=== PATIENT | female | born 1950 | race Two or more races ===

== ENCOUNTER 2024-11-04 08:10 | Outpatient (AMB) | payer MEDICARE, MEDICAID, SELFPAY ==
--- NOTE | 2024-11-04 08:18 | PD.ORTHCLVIS ---
Vital signs 11/04/24 08:19 Height 1.65 m Height Method Stated Weight 100.045 kg Weight Measurement Method Standing Scale BMI 36.7 BP 114/65 Blood Pressure Source Automatic Cuff Blood Pressure Location Left Upper Arm Position Sitting Respiration 19 Pulse 94 Pulse Source Monitor Temp 97.5 F Temp Source Temporal Artery Scan Pulse Oximetry (%) 92 L Oxygen Delivery Method Room Air Med/Allergies Allergies & Medications Allergies aspirin Allergy (Intermediate, Verified 11/04/24 08:19) HIVES,DIFF. BREATHING ciprofloxacin Allergy (Intermediate, Verified 11/04/24 08:19) Bradycardia codeine Allergy (Intermediate, Verified 11/04/24 08:19) HIVES,DIFF. BREATHING erythromycin base Allergy (Intermediate, Verified 11/04/24 08:19) HIVES,DIFF. BREATHING ibuprofen Allergy (Intermediate, Verified 11/04/24 08:19) EYES SWELL,DIFF. BREATHING iodine Allergy (Intermediate, Verified 11/04/24 08:19) HIVES, DIFF. BREATHING Macrolide Antibiotics Allergy (Intermediate, Verified 11/04/24 08:19) HIVES,DIFF. BREATHING Penicillins Allergy (Intermediate, Verified 11/04/24 08:19) HIVES, DIFF. BREATHING propoxyphene Allergy (Intermediate, Verified 11/04/24 08:19) HIVES,DIFF. BREATHING Sulfa (Sulfonamide Antibiotics) Allergy (Intermediate, Verified 11/04/24 08:19) HIVES, DIFF. BREATHING tetracycline Allergy (Intermediate, Verified 11/04/24 08:19) HIVES, DIFF. BREATHING Medication Reconciliation diltiazem HCl 240 mg capsule,extended release 24 hr (Cardizem CD) 240 mg PO QAM ##0 06/29/09 [History Confirmed 11/04/24] metoprolol tartrate 25 mg tablet 25 mg PO BID 03/31/18 [History Confirmed 11/04/24] amlodipine 10 mg tablet 5 mg PO BID 12/23/18 [History Confirmed 11/04/24] linagliptin 5 mg tablet (Tradjenta) 5 mg PO QAM 12/23/18 [History Confirmed 11/04/24] budesonide-formoterol HFA 160 mcg-4.5 mcg/actuation aerosol inhaler (Symbicort) 2 puff inhalation QAM 10/27/20 [History Confirmed 11/04/24] tiotropium bromide 1.25 mcg/actuation mist for inhalation (Spiriva Respimat) 2 puff inhalation QAM 11/15/21 [History Confirmed 11/04/24] metformin 500 mg tablet 500 mg PO PRN PRN hyperglycemia 01/18/22 [History Confirmed 11/04/24] hydrocodone 5 mg-acetaminophen 325 mg tablet 1 tab PO Q6H PRN pain #20 tabs 01/19/22 [Rx Confirmed 11/04/24] Exam Exam Patient is in no acute distress and is cooperative with the examination today. Breathing is nonlabored. In no respiratory distress. Patient has no paraspinal tenderness. Spinal deformity cannot be appreciated. The gait of the patient is nonantalgic. She uses a walker due to oxygenation issues Bilateral extremities were evaluated and demonstrates sensation intact to light touch. Palpable pedal pulses are present. No significant edema is present. Bilateral knees were examined and the patient has full strength and range of motion.. The left hip was examined. Patient was able to flex to 90 degrees, adduct to 30 degrees, abduct to 40 degrees, internally rotate to 20 degrees, and externally rotate to 20 degrees. Patient has a negative logroll. Stinchfield is negative. The patient is nontender diffusely to touch. The right hip was examined. Patient was able to flex to 90 degrees, adduct to 30 degrees, abduct to 40 degrees, internally rotate to 20 degrees, and externally rotate to 20 degrees. Patient has a negative logroll. The stinchfield is negative. Assessment and Plan Problem List (1) Acute pain of right hip: Status: Acute Plan: 74-year-old female with right hip pain with pain on the side in the back. Her x-rays actually looks great. She has mild arthritis as well as severe L4-L5 degenerative disc disease. I think the pain is most likely due to her back. We will see her back on an as-needed basis if his pain is gone. I discussed with her that her hip looks great and if the pain gets worse it is likely from her back given the limited view of the spine that I can see from the hip films. We will get dedicated lumbar spine films should the pain worsen. 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 Level 4 (6212-4861) MA Intake Visit Data Collection New Patient or Established: New Patient (never been to [facility]) Reason for Visit:: RIGHT HIP PAIN Seen by Clinical Staff ONLY (RN/MA): No Char Filter Operator Required: No PCP or OBGYN visit in last 3 months: Yes Hx Now: No Do You Feel Safe at Home: Yes Authorities Contacted: N/A Questionairres Past Medical History Past Medical History Have you ever been diagnosed with any of the following: Neurological Problems Seizures: No Cardiology Problems Myocardial Infarction: No Hypercholesterolemia: Yes Congestive Heart Failure: No Cellulitis: Yes Hypertension: Yes (takes PO meds) Varicose Veins: Yes Respiratory Problems Chronic Obstructive Pulmonary Disease (COPD): Yes Asthma: Yes Pneumonia: Yes Sleep Apnea: Yes (oxygen 2 liters at night) Stomache/Intestinal Problems Colitis: Yes Gastroesophageal Reflux Disease: Yes Genital/Urinary Problems Renal Disease: No Kidney Stones: No Dialysis: No Reproductive Problems Endometriosis: Yes Previous Pregnancies: Yes () Musculoskeletal Problems Arthritis: Yes Osteoporosis: Yes Gout: Yes Fractures: Yes (RIGHT PINKY) Head,Eye,Nose,Throat Problems Cataracts: Yes Endocrine Problems Diabetes Mellitus Type 1: No Diabetes Mellitus Type 2: Yes (takes metformin PRN) Blood Problems Anemia: No Psychologic Problems Anxiety: Yes Other Problems Hospitalization: Yes Shingles: Yes Falls: No Blood Transfusions: No Blood Transfusion Reaction: No Anesthesia Reactions: No Organ Transplant: No Chemotherapy: No Radiation Therapy: No Hyperbaric Therapy: No MRSA: No VRSA: No Vancomycin-Resistant Enterococci: No Chicken Pox: Yes Measles: Yes Mumps: Yes Cancer: Yes (KIDNEY CA, PRECANCER CERVIX, 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 The pain started 2 months ago and stopped 3 weeks ago. She had minimal pain in her groin. She uses a walker as she is on home oxygen Pain Pain level (0-10): 0 Ambulatory data Ambulatory device: walker Treatments Improvement with previous injections: No Improvement with PT: No Improvement with NSAIDS: no Review of Systems Review of Systems: All systems negative unless otherwise noted in HPI.
[2024-11-04 08:19] VITALS: BP 114/65; PULSE 94; RESP 19; TEMP 36.4; O2SAT 92; BMI 36.7
== END 2024-11-04 08:45 | disposition home or self-care (01) ==
PROVIDERS: PCP Internal Medicine; Referring Provider Internal Medicine; Supervising Provider Orthopaedic Surgery Adult Reconstructive Orthopaedic Surgery; Visit Provider Orthopaedic Surgery Adult Reconstructive Orthopaedic Surgery
DX: M25.551 Pain in right hip (principal); M47.816 Spondylosis without myelopathy or radiculopathy, lumbar region; M51.369 Other intervertebral disc degeneration, lumbar region without mention of lumbar back pain or lower extremity pain; I10 Essential (primary) hypertension; E11.9 Type 2 diabetes mellitus without complications; E78.00 Pure hypercholesterolemia, unspecified; K21.9 Gastro-esophageal reflux disease without esophagitis
CPT/HCPCS: 99204; G0463

== ENCOUNTER → 2024-12-01 | Outpatient (CLI) | payer MEDICARE, MEDICAID, SELFPAY ==
[2024-12-01 09:36] LABS: Collection Type, Urine Clean Catch
[2024-12-01 09:38] LABS: Basophils # (Auto) 0.1 Thou/mm3 (0.0-0.2); Basophils % (Auto) 1 % (0-2.5); Eosinophils % (Auto) 8 % (0-10); Hematocrit 49.6 % (36.0-46.0); Hemoglobin 16.2 g/dL (12.0-16.0); Immature Granulocytes % (Auto) 0 % (0-0); Immature Granulocytes Auto 0.05 Thou/mm3 (0.00-0.00); Lymphocytes # (Auto) 2.4 Thou/mm3 (1.0-4.8); Lymphocytes % (Auto) 19 % (10-50); Mean Corpuscular HGB Conc 32.7 g/dl (31.0-37.0); Mean Corpuscular Hemoglobin 28.9 pg (25.0-35.0); Mean Corpuscular Volume 88 fL (80-100); Monocytes # (Auto) 0.9 Thou/mm3 (0.0-0.8); Monocytes % (Auto) 7 % (0-12); Neutrophils # (Auto) 8.6 Thou/mm3 (1.8-7.7); Neutrophils % (Auto) 66 % (37-80); Nucleated Red Blood Cell % 0 /100 WBC (0); Platelet Count 282 Thou/mm3 (140-440); RDW Standard Deviation 45.6 fL (36.4-46.3); Red Blood Count 5.61 Miln/mm3 (4.00-5.20)
[2024-12-01 09:43] LABS: Glucose Estimated Average 151 mg/dL (80-131); Hemoglobin A1C 6.9 % Hgb (4.8-6.0)
[2024-12-01 09:56] LABS: Alanine Aminotransferase 25 U/L (10-49); Albumin, Serum 4.7 gm/dL (3.4-4.8); Albumin/Globulin Ratio 1.9 (1.2-2.2); Alkaline Phosphatase 104 U/L (46-116); Anion Gap 7 (7-16); Aspartate Amino Transferase 21 U/L (0-34); BUN/Creatinine Ratio 16 Ratio (12-20); Bilirubin,Total 0.8 mg/dL (0.3-1.2); Blood Urea Nitrogen 16 mg/dL (9-23); Calcium 10.2 mg/dL (8.3-10.6); Calcium (Corrected) 10.2 mg/dL (8.5-10.1); Carbon Dioxide 29.7 mMol/L (20.0-31.0); Cardiac Risk Estimate 3.2 RATIO (3.7-5.6); Chloride 103 mMol/L (98-107); Cholesterol 152 mg/dL (132-200); Globulin 2.5 gm/dL (2.3-3.5); Glucose 152 mg/dL (74-106); HDL Cholesterol 48 mg/dL (40-60); LDL Cholesterol,Calculated 77 mg/dL (0-130); Osmolality,Calculated 283 (275-295); Sodium 140 mMol/L (136-145); Thyroid Stimulating Hormone 3.82 uIU/mL (0.55-4.78); Total Protein 7.2 gm/dL (5.7-8.2); Triglycerides 136 mg/dL (30-150); eGFR 59 See Note
[2024-12-01 10:55] LABS: Bacteria,Urine 3+; Bilirubin,Urine Negative (Negative); Blood,Urine Negative (Negative); Clarity,Urine Clear (Clear/Hazy); Color,Urine Yellow (Lt Yel-Yel); Glucose, Urine Trace (Negative); Ketones,Urine Trace (Negative); Leukocyte Esterase,Urine Positive (Negative); Nitrite,Urine Positive (Negative); Protein,Urine 1+ (Neg - Trace); RBC,Urine 1 /hpf (0-3); Specific Gravity,Urine 1.023 (1.001-1.035); Squamous Epithelial Cell,Urine 3 /hpf (0-5); Urobilinogen,Urine Negative mg/dL (0.0-1.0); WBC,Urine 10 /hpf (0-5)
[2024-12-01 11:03] LABS: Culture Indicated,Urine Yes
== END | disposition home or self-care (01) ==
PROVIDERS: PCP Internal Medicine; Referring Provider Internal Medicine; Visit Provider Internal Medicine
DX: I10 Essential (primary) hypertension (principal); E78.5 Hyperlipidemia, unspecified
CPT/HCPCS: 36415; 80053; 80061; 81001; 83036; 84443; 85025; 87077; 87086; 87186

== ENCOUNTER 2025-02-04 16:57 | Emergency (ER) | payer MEDICARE, SELFPAY ==
[2025-02-04 17:07] VITALS: BP 137/77; PULSE 98; RESP 18; TEMP 36.6; O2SAT 95
[2025-02-04 17:08] VITALS: BMI 36.2
--- NOTE | 2025-02-04 17:28 | EKG_ITS ---
[facility] Test Date: 2025-02-04 Pat Name: NIKUNJ CHAPPELL Department: Room: - Gender: Female Seamless Tube Roller: : 1950 Requested By: Wayne Jung Order Number: [id number] Reading MD: Wayne Jung Measurements Intervals [place] Rate: 92 P: 27 CO: 145 QRS: -5 QRSD: 106 T: -22 QT: 365 QTc: 453 Interpretive Statements SINUS RHYTHM INCOMPLETE RIGHT BUNDLE BRANCH BLOCK [90+ ms QRS DURATION, TERMINAL R IN V1/V2, 40+ ms S IN I/aVL/V4/V5/V6] INFERIOR MYOCARDIAL INFARCTION , PROBABLY OLD [40+ ms Q WAVE AND/OR ST/T ABNORMALITY IN II/aVF] ANTEROLATERAL MYOCARDIAL INFARCTION , OF INDETERMINATE AGE [40+ ms Q WAVE IN I/aVL/V3-V6] Compared to ECG 11/15/2021 11:51:24 No significant changes /store/S0/[id number]/ecg/[id number].pdf
--- NOTE | 2025-02-04 17:30 | PD.EDRME ---
Rapid Medical Screening Exam RME Arrival date/time: 02/04/25 16:57 Time Seen by Provider: 02/04/25 17:27 Vital signs: Vital Signs Temperature 97.9 F 02/04/25 17:07 Pulse Rate 98 02/04/25 17:07 Respiratory Rate 18 02/04/25 17:07 Blood Pressure 137/77 H 02/04/25 17:07 Pulse Oximetry (%) 95 02/04/25 17:07 Oxygen Delivery Method Room Air 02/04/25 17:07 RME Narrative: 74-year-old female with history of hypertension, frequent headaches, who was at the [facility] when she noted a headache followed by palpitations, and feeling of lightheadedness. She denies syncope. During transport her headache had subsided initially but now has returned as she is in the ambulance bay. She denies focal neurologic complaints. I have greeted the patient and initiated a problem focused workup. She will be seen by the additional provider for complete analysis, management, and final disposition.
[2025-02-04] MEDS: ACETAMINOPHEN 325 MG TABLET 650 MG PO (17:33)
[2025-02-04 17:34] VITALS: PULSE 99; RESP 16; O2SAT 98; BMI 35.9
--- NOTE | 2025-02-04 17:50 | PD.EDADULT ---
ED General RME/HPI General Chief complaint: Syncope / Near Syncope Stated complaint: HEADACHE/NEAR SYNCOPE Time Seen by Provider: 02/04/25 17:27 Arrival date/time: 02/04/25 16:57 RME / HPI RME / HPI narrative: 74-year-old female with history of hypertension, frequent headaches, who was at the [facility] when she noted a headache followed by palpitations, and feeling of lightheadedness. She denies syncope. During transport her headache had subsided initially but now has returned as she is in the ambulance bay. She denies focal neurologic complaints. Patient denies any chest pain. Patient denies any other complaints patient was recently started on new blood pressure medication, clonidine, and was advised to take it with the blood pressure is above 160. She took it this morning prior to going to [facility]. Related Data Home Medications ?Medication ?Instructions ?Recorded ?Confirmed diltiazem HCl 240 mg 240 mg PO QAM ##0 06/29/09 11/04/24 capsule,extended release 24 hr (Cardizem CD) metoprolol tartrate 25 mg tablet 25 mg PO BID 03/31/18 11/04/24 amlodipine 10 mg tablet 5 mg PO BID 12/23/18 11/04/24 linagliptin 5 mg tablet (Tradjenta) 5 mg PO QAM 12/23/18 11/04/24 budesonide-formoterol HFA 160 2 puff inhalation QAM 10/27/20 11/04/24 mcg-4.5 mcg/actuation aerosol inhaler (Symbicort) tiotropium bromide 1.25 2 puff inhalation QAM 11/15/21 11/04/24 mcg/actuation mist for inhalation (Spiriva Respimat) metformin 500 mg tablet 500 mg PO PRN PRN hyperglycemia 01/18/22 11/04/24 Previous Rx's ?Medication ?Instructions ?Recorded hydrocodone 5 mg-acetaminophen 325 1 tab PO Q6H PRN pain #20 tabs 01/19/22 mg tablet Allergies Allergy/AdvReac Type Severity Reaction Status Date / Time aspirin Allergy Intermediate HIVES,DIFF. Verified 11/04/24 08:19 BREATHING ciprofloxacin Allergy Intermediate Bradycardia Verified 11/04/24 08:19 codeine Allergy Intermediate HIVES,DIFF. Verified 11/04/24 08:19 BREATHING erythromycin base Allergy Intermediate HIVES,DIFF. Verified 11/04/24 08:19 BREATHING ibuprofen Allergy Intermediate EYES Verified 11/04/24 08:19 SWELL,DIFF. BREATHING iodine Allergy Intermediate HIVES, Verified 11/04/24 08:19 DIFF. BREATHING Macrolide Antibiotics Allergy Intermediate HIVES,DIFF. Verified 11/04/24 08:19 BREATHING Penicillins Allergy Intermediate HIVES, Verified 11/04/24 08:19 DIFF. BREATHING propoxyphene Allergy Intermediate HIVES,DIFF. Verified 11/04/24 08:19 BREATHING Sulfa (Sulfonamide Allergy Intermediate HIVES, Verified 11/04/24 08:19 Antibiotics) DIFF. BREATHING tetracycline Allergy Intermediate HIVES, Verified 11/04/24 08:19 DIFF. BREATHING Review of Systems Review of Systems Narrative Review of Systems: Review of system reviewed and within normal limits except mentioned in HPI ED Exam Narrative Physical exam: VITAL SIGNS: Reviewed. GENERAL APPEARANCE: Alert and interactive, follows commands, no acute distress, HEAD AND FACE: Non-traumatic. ENT: PERRL, pink conjunctivitis, eyelid no trauma, Mucous membrane moist. NECK: Supple, nontender, no nuchal rigidity. CHEST: No tenderness, no crepitus, no paradoxical movement, no retractions. LUNGS: Clear, well ventilated, symmetric, no rales, no wheezing, no ronchi, no stridor, good breath sounds bilaterally. HEART: Regular rate, regular rhythm, no murmur, no gallops. ABDOMEN: Soft, positive bowel sounds, nondistended, no guarding, nontender, no rebound, no masses, RECTAL: Deferred. GENITAL: Deferred. NEUROLOGICAL: Gross motor function intact sensory function intact, Appropriate for age. MUSCULOSKELETAL: low back nontender, full range of motion. EXTREMITIES: Nontender, full range of motion. SKIN: Color pink, dry, no rash, no lacerations, no abrasions, no contusions. LYMPHATICS: Deferred. Course Quality Measures none Orders Category Date Time Status EKG (ED ONLY) *Do not use* NOW Care 02/04/25 17:29 Completed EKG (ED Only) Stat Exams 02/04/25 17:28 Draft BMP [Basic Metabolic Panel] Stat Lab 02/04/25 18:39 Completed CBC Stat Lab 02/04/25 18:39 Completed Acetaminophen Tab [Tylenol Tab] Med 02/04/25 17:29 Discontinued 650 mg PO X1 ONE Vital Signs Vital signs: Vital Signs Temperature 97.9 F 02/04/25 17:07 Pulse Rate 98 02/04/25 17:07 Respiratory Rate 18 02/04/25 17:07 Blood Pressure 137/77 H 02/04/25 17:07 Pulse Oximetry (%) 95 02/04/25 17:07 Oxygen Delivery Method Room Air 02/04/25 17:07 MDM Patient data External records reviewed:: None Clinical information provided by:: none Social determinants that could affect healthcare access:: housing Patient has the following chronic illnesses:: Hypertension How is presenting disease/condition affected by chronic disease/condition?: exacerbated by Evaluation data The following diagnostics were reviewed and interpreted by me:: lab results Lab and/or radiology exams considered but not ordered:: None Interpretation Summary: EKG as interpreted by me shows sinus rhythm ventricular rate of 92 bpm, no ST segment elevation or depression noted. Patient's workup CBC and CMP all came back unremarkable except for slight leukocytosis of 15,000. Medications Medications considered but not ordered:: None Medication administrations:: Medication Administration History Discontinued Medications Acetaminophen (Acetaminophen 325 Mg Tablet) 650 mg PO X1 ONE Stop: 02/04/25 17:30 Last Admin: 02/04/25 17:33 Dose: 650 mg Documented By: GM Tylenol Consultations Consultation(s) initiated? (list below): No Diagnosis Differential Diagnosis ED Complaint MDM: Headache, dizziness, hypertension Most likely diagnosis given after review of the tests above:: Hypertension Admission Indicated Admission indicated?: not indicated Explain why admission is indicated or not indicated:: Stable Admission Request Was there a request for admission?: No Disposition Plan Disposition Plan: Discharge Discharge Attestation Discharge Attestation: The patient and all family members were given an opportunity to ask questions and understood the discharge instructions. Discharge instructions specifically effects, indications for sooner follow up or return to the emergency department, and the expected course of current diagnosis. Patient condition: Stable Medical Decision Making MDM Narrative MDM Narrative: 74-year-old female with history of hypertension, frequent headaches, who was at the [facility] when she noted a headache followed by palpitations, and feeling of lightheadedness. She denies syncope. During transport her headache had subsided initially but now has returned as she is in the ambulance bay. She denies focal neurologic complaints. Patient denies any chest pain. Patient denies any other complaints patient was recently started on new blood pressure medication, clonidine, and was advised to take it with the blood pressure is above 160. She took it this morning prior to going to [facility]. Patient's blood pressure was noted to be 127/62 heart rate of 81 prior to discharge. Patient is not having any symptoms Differential Diagnosis Differential Diagnosis: Headache, dizziness, hypertension Lab Data 02/04/25 18:39 02/04/25 18:39 Labs: Lab Results 02/04/25 Range/Units 18:39 WBC 15.1 H (3.6-11.0) Thou/mm3 RBC 5.30 H (4.00-5.20) Miln/mm3 Hgb 15.2 (12.0-16.0) g/dL Hct 46.4 H (36.0-46.0) % MCV 88 (80-100) fL MCH 28.7 (25.0-35.0) pg MCHC 32.8 (31.0-37.0) g/dl RDW Std Deviation 47.0 H (36.4-46.3) fL Plt Count 233 (140-440) Thou/mm3 Neut % (Auto) 69 (37-80) % Lymph % (Auto) 15 (10-50) % [place] % (Auto) 7 (0-12) % Eos % (Auto) 8 (0-10) % Baso % (Auto) 1 (0-2.5) % Neut # (Auto) 10.3 H (1.8-7.7) Thou/mm3 Lymph # (Auto) 2.3 (1.0-4.8) Thou/mm3 [place] # (Auto) 1.1 H (0.0-0.8) Thou/mm3 Eos # (Auto) 1.2 H (0.0-0.5) Thou/mm3 Baso # (Auto) 0.1 (0.0-0.2) Thou/mm3 Immature Gran # (Auto) 0.06 H (0.00-0.00) Thou/mm3 Absolute Nucleated RBC 0.00 (0.00-0.00) Thou/mm3 Immature Gran % 0 (0-0) % Nucleated RBC % 0 (0) /100 WBC Sodium 145 (136-145) mMol/L Potassium 3.5 (3.4-5.1) mMol/L Chloride 106 (98-107) mMol/L Carbon Dioxide 32.2 H (20.0-31.0) mMol/L Anion Gap 7 (7-16) BUN 12 (9-23) mg/dL Creatinine 1.1 (0.6-1.3) mg/dL Estim Creat Clear Calc 52.7 L (>60) mL/min eGFR 53 L (60 - ) See Note BUN/Creatinine Ratio 11 L (12-20) Ratio Glucose 103 (74-106) mg/dL Calculated Osmolality 288 (275-295) Calcium 9.7 (8.3-10.6) mg/dL Discharge Plan Plan Patient Disposition: HOME (Self Care) Disposition Comment: Stable Prescriptions/Referrals Prescriptions/Med Rec: No Action diltiazem HCl [Cardizem CD] 240 MG capsule,extended release 24hr 240 mg PO QAM Qty: 0 metoprolol tartrate 25 mg Tablet 25 mg PO BID budesonide-formoterol [Symbicort] 160-4.5 mcg/actuation Hfa Aerosol Inhaler 2 puff INHALATION QAM Spiriva Respimat 1.25 mcg/actuation Mist 2 puff INHALATION QAM metformin 500 mg tablet 500 mg PO PRN PRN (Reason: hyperglycemia) Patient Comments: TAKE 1 TABLET BY MOUTH TWICE A DAY hydrocodone-acetaminophen 5-325 mg tablet 1 tab PO Q6H MDD 5 PRN (Reason: pain) Qty: 20 0RF amlodipine 10 mg Tablet 5 mg PO BID Tradjenta 5 mg Tablet 5 mg PO QAM Referrals: Anca Esteban MD [Primary Care Provider] - In 1 week Problem List Clinical Impression: Hypertension Patient/Caregiver Discharge Instructions Discharge Activity: activity as tolerated Education Materials: Hypertension Dc Additional Instructions: Thank you for the opportunity for serving you today. You are stable for discharged . You are advised to: Follow-up with your PCP in 1 to 2 days Return to ED for worsening of symptoms Increase oral fluids Take medication as prescribed by your PCP You may take Tylenol as needed for headache Print Language: Kinyarwanda Stand Alone Forms: [employer] Award Info., Patient Portal Info Letter PA/STACEY Supervising Physician PA/STACEY Supervising Physician: MD Karissa
[2025-02-04 18:42] VITALS: BP 127/62; PULSE 81; RESP 18; TEMP 36.4; O2SAT 97
[2025-02-04 18:55] LABS: Basophils # (Auto) 0.1 Thou/mm3 (0.0-0.2); Basophils % (Auto) 1 % (0-2.5); Eosinophils # (Auto) 1.2 Thou/mm3 (0.0-0.5); Eosinophils % (Auto) 8 % (0-10); Hematocrit 46.4 % (36.0-46.0); Hemoglobin 15.2 g/dL (12.0-16.0); Immature Granulocytes % (Auto) 0 % (0-0); Immature Granulocytes Auto 0.06 Thou/mm3 (0.00-0.00); Lymphocytes # (Auto) 2.3 Thou/mm3 (1.0-4.8); Lymphocytes % (Auto) 15 % (10-50); Mean Corpuscular HGB Conc 32.8 g/dl (31.0-37.0); Mean Corpuscular Hemoglobin 28.7 pg (25.0-35.0); Mean Corpuscular Volume 88 fL (80-100); Monocytes # (Auto) 1.1 Thou/mm3 (0.0-0.8); Monocytes % (Auto) 7 % (0-12); Neutrophils # (Auto) 10.3 Thou/mm3 (1.8-7.7); Neutrophils % (Auto) 69 % (37-80); Nucleated Red Blood Cell % 0 /100 WBC (0); Platelet Count 233 Thou/mm3 (140-440); White Blood Count 15.1 Thou/mm3 (3.6-11.0)
[2025-02-04 19:18] LABS: Anion Gap 7 (7-16); BUN/Creatinine Ratio 11 Ratio (12-20); Blood Urea Nitrogen 12 mg/dL (9-23); Calcium 9.7 mg/dL (8.3-10.6); Carbon Dioxide 32.2 mMol/L (20.0-31.0); Chloride 106 mMol/L (98-107); Creatinine (Component) 1.1 mg/dL (0.6-1.3); Estimated Creatinine Clearance 52.7 mL/min (>60); Glucose 103 mg/dL (74-106); Osmolality,Calculated 288 (275-295); Potassium 3.5 mMol/L (3.4-5.1); Sodium 145 mMol/L (136-145); eGFR 53 See Note
[2025-02-04 19:53] VITALS: BP 134/70; PULSE 78; RESP 18; TEMP 36.6; O2SAT 97
== END 2025-02-04 20:19 | disposition home or self-care (01) ==
PROVIDERS: Emergency Provider Emergency Medicine; PCP Internal Medicine
DX: I10 Essential (primary) hypertension (principal); I45.10 Unspecified right bundle-branch block
CPT/HCPCS: 36415; 80048; 85025; 93005; 99283; A9270

== ENCOUNTER 2025-02-12 12:46 | Emergency (ER) | payer MEDICARE, MEDICAID, SELFPAY ==
[2025-02-12 12:54] VITALS: BMI 35.4
[2025-02-12 12:55] VITALS: BP 125/79; PULSE 94; RESP 19; TEMP 36.6; O2SAT 95
[2025-02-12 12:57] VITALS: PULSE 90; O2SAT 95; BMI 35.2
--- NOTE | 2025-02-12 13:08 | PC.NURSE ---
pt is refusing to be seen by provider in triage. Family member picked her up to take her to her regular doctor. Advised patient to be seen by ER provider but she refused.
--- NOTE | 2025-02-12 15:24 | PC.NURSE ---
@1330 Patient was biba for c/o high blood pressure, RN started to do triage for patient and after answering all questions, patient did not want to be seen. Patient stated will have her granddaughter take her to PMD. Patient is alert and oriented sitting in wheelchair, no apparent distress noted. Patient verbalizing understanding.
== END 2025-02-12 13:34 | disposition left against medical advice (07) ==
LOC: SERX 13:56
PROVIDERS: Emergency Provider Emergency Medicine
DX: Z53.21 Procedure and treatment not carried out due to patient leaving prior to being seen by health care provider (principal)
CPT/HCPCS: 99281

== ENCOUNTER → 2025-03-20 | Outpatient (CLI) | payer MEDICARE, MEDICAID, SELFPAY ==
[2025-03-20 09:38] LABS: Collection Type, Urine Clean Catch
[2025-03-20 10:21] LABS: Basophils # (Auto) 0.1 Thou/mm3 (0.0-0.2); Basophils % (Auto) 1 % (0-2.5); Eosinophils # (Auto) 1.8 Thou/mm3 (0.0-0.5); Eosinophils % (Auto) 15 % (0-10); Hematocrit 45.6 % (36.0-46.0); Hemoglobin 14.6 g/dL (12.0-16.0); Immature Granulocytes % (Auto) 0 % (0-0); Immature Granulocytes Auto 0.05 Thou/mm3 (0.00-0.00); Lymphocytes # (Auto) 3.1 Thou/mm3 (1.0-4.8); Lymphocytes % (Auto) 25 % (10-50); Mean Corpuscular Hemoglobin 28.4 pg (25.0-35.0); Mean Corpuscular Volume 89 fL (80-100); Monocytes # (Auto) 0.9 Thou/mm3 (0.0-0.8); Monocytes % (Auto) 8 % (0-12); Neutrophils # (Auto) 6.4 Thou/mm3 (1.8-7.7); Neutrophils % (Auto) 52 % (37-80); Nucleated Red Blood Cell % 0 /100 WBC (0); Platelet Count 259 Thou/mm3 (140-440); RDW Standard Deviation 47.9 fL (36.4-46.3); Red Blood Count 5.14 Miln/mm3 (4.00-5.20); White Blood Count 12.3 Thou/mm3 (3.6-11.0)
[2025-03-20 10:32] LABS: Glucose Estimated Average 134 mg/dL (80-131); Hemoglobin A1C 6.3 % Hgb (4.8-6.0)
[2025-03-20 10:33] LABS: Parathyroid Hormone Intact 99.1 pg/ml (18.5-88.0)
[2025-03-20 10:38] LABS: Creatinine MALB Rnd Ur 105 mg/dL (30-125); Microalbumin Creat Ratio 34 mg/gCrea (<30); Microalbumin, Random Urine 36 mg/L (0-300)
[2025-03-20 10:43] LABS: Alanine Aminotransferase 19 U/L (10-49); Albumin, Serum 4.3 gm/dL (3.4-4.8); Albumin/Globulin Ratio 1.9 (1.2-2.2); Alkaline Phosphatase 98 U/L (46-116); Anion Gap 8 (7-16); Aspartate Amino Transferase 17 U/L (0-34); BUN/Creatinine Ratio 10 Ratio (12-20); Bilirubin,Total 0.6 mg/dL (0.3-1.2); Blood Urea Nitrogen 11 mg/dL (9-23); Calcium 8.9 mg/dL (8.3-10.6); Calcium (Corrected) 8.9 mg/dL (8.5-10.1); Carbon Dioxide 29.8 mMol/L (20.0-31.0); Cardiac Risk Estimate 3.3 RATIO (3.7-5.6); Chloride 106 mMol/L (98-107); Cholesterol 143 mg/dL (132-200); Creatinine (Component) 1.1 mg/dL (0.6-1.3); Globulin 2.3 gm/dL (2.3-3.5); Glucose 132 mg/dL (74-106); HDL Cholesterol 43 mg/dL (40-60); LDL Cholesterol,Calculated 76 mg/dL (0-130); Osmolality,Calculated 288 (275-295); Potassium 3.9 mMol/L (3.4-5.1); Sodium 144 mMol/L (136-145); Thyroid Stimulating Hormone 3.85 uIU/mL (0.55-4.78); Total Protein 6.6 gm/dL (5.7-8.2); Triglycerides 118 mg/dL (30-150); eGFR 53 See Note
[2025-03-20 10:45] LABS: Vitamin B12 411 pg/mL (211-911); Vitamin D 25 Hydroxy Total 33.5 ng/mL (7.3-40.2)
[2025-03-20 10:49] LABS: Bacteria,Urine Rare; Bilirubin,Urine Negative (Negative); Blood,Urine Negative (Negative); Color,Urine Yellow (Lt Yel-Yel); Glucose, Urine Negative (Negative); Ketones,Urine Negative (Negative); Leukocyte Esterase,Urine Positive (Negative); Nitrite,Urine Positive (Negative); PH,Urine 6.5 (5.0-7.0); Protein,Urine Trace (Neg - Trace); RBC,Urine 2 /hpf (0-3); Squamous Epithelial Cell,Urine 3 /hpf (0-5); Urobilinogen,Urine Negative mg/dL (0.0-1.0); WBC,Urine 11 /hpf (0-5)
[2025-03-20 11:12] LABS: Clarity,Urine Hazy (Clear/Hazy)
== END | disposition home or self-care (01) ==
LOC: COPL 08:54
PROVIDERS: PCP Internal Medicine; Referring Provider Internal Medicine; Visit Provider Internal Medicine
DX: D51.9 Vitamin B12 deficiency anemia, unspecified (principal); E03.9 Hypothyroidism, unspecified; E11.9 Type 2 diabetes mellitus without complications; E55.9 Vitamin D deficiency, unspecified; E78.5 Hyperlipidemia, unspecified; I10 Essential (primary) hypertension
CPT/HCPCS: 36415; 80053; 80061; 81001; 82043; 82306; 82570; 82607; 83036; 83970; 84443; 85025

== ENCOUNTER 2025-04-28 22:09 | Inpatient (IN) | payer MEDICARE, MEDICAID, SELFPAY ==
--- NOTE | 2025-04-28 22:13 | PD.EDSOB ---
ED SOB =RME/HPI General Chief Complaint: Shortness of Breath/Dyspnea Stated Complaint: SOB Time Seen by Provider: 04/28/25 22:22 Arrival date/time: 04/28/25 22:09 RME / HPI RME / HPI Narrative: This section includes all my notes and documentations, including HPI, PE, and ED course. Hood Hancock MD HPI: 75 y/o female with Hx Anxiety, HTN, and COPD BIBA presents with about a week history of worsening cough, productive cough, purulent sputum, and dyspnea. Patient is on 2L supplemental oxygen at home, but denies using O2 as prescribed and only uses it PRN. Has been using an more in the past few days. Reports objective fever and severe chills and bodyaches and nausea. No other complaints. ROS: All negative except as documented in HPI. Physical Exam: General: Alert and oriented. In moderate respiratory distress. Fever and hypoxia noted. Hacking cough noted. Eyes: Conjunctivae and lids clear. ENT: No nasal congestion. Neck: Supple. Heart: Sinus tachycardia noted. Lungs: Respiratory distress. Moderately decreased air movement with wheezing and rales. Abdomen: Soft and nontender. Skin: Warm and dry. Neuro: Alert and oriented X 3. I reviewed EMS notes. I reviewed all diagnostic test results: My interpretation of the EKG is: Sinus tachycardia (120 bpm) with nonspecific ST-T changes. My interpretation of the chest x-ray is infiltrates. Blood tests remarkable for WBC 14.7. ABG showed pH 7.44, pCO2 41, and pHCO3 28. UA showed positive nitrite, positive leukocyte Estrace, 46 WBC, and bacteria. Covid/Influenza negative. At this point, diagnoses include: Acute respiratory failure with hypoxia Sepsis Pneumonia COPD exacerbation UTI Treatment here included: IV fluid, Zofran, Solu-Medrol, neb treatment, Tylenol, Rocephin, and Zithromax. Some improvement noted. I discussed the case with our hospitalist. About the presentation and exam and diagnostics and treatments here. And need of further care in the hospital. Will accept the patient. Hood Hancock MD Related Data Home Medications ?Medication ?Instructions ?Recorded ?Confirmed diltiazem HCl 240 mg 240 mg PO QA ##0 06/29/09 11/04/24 capsule,extended release 24 hr (Cardizem CD) metoprolol tartrate 25 mg tablet 25 mg PO BID 03/31/18 11/04/24 amlodipine 10 mg tablet 5 mg PO BID 12/23/18 11/04/24 linagliptin 5 mg tablet (Tradjenta) 5 mg PO QAM 12/23/18 11/04/24 budesonide-formoterol HFA 160 2 puff inhalation QAM 10/27/20 11/04/24 mcg-4.5 mcg/actuation aerosol inhaler (Symbicort) tiotropium bromide 1.25 2 puff inhalation QAM 11/15/21 11/04/24 mcg/actuation mist for inhalation (Spiriva Respimat) metformin 500 mg tablet 500 mg PO PRN PRN hyperglycemia 01/18/22 11/04/24 Previous Rx's ?Medication ?Instructions ?Recorded hydrocodone 5 mg-acetaminophen 325 1 tab PO Q6H PRN pain #20 tabs 01/19/22 mg tablet Allergies Allergy/AdvReac Type Severity Reaction Status Date / Time aspirin Allergy Intermediate HIVES,DIFF. Verified 02/12/25 13:01 BREATHING ciprofloxacin Allergy Intermediate Bradycardia Verified 02/12/25 13:01 codeine Allergy Intermediate HIVES,DIFF. Verified 02/12/25 13:01 BREATHING erythromycin base Allergy Intermediate HIVES,DIFF. Verified 02/12/25 13:01 BREATHING ibuprofen Allergy Intermediate EYES Verified 02/12/25 13:01 SWELL,DIFF. BREATHING iodine Allergy Intermediate HIVES, Verified 02/12/25 13:01 DIFF. BREATHING Macrolide Antibiotics Allergy Intermediate HIVES,DIFF. Verified 02/12/25 13:01 BREATHING Penicillins Allergy Intermediate HIVES, Verified 02/12/25 13:01 DIFF. BREATHING propoxyphene Allergy Intermediate HIVES,DIFF. Verified 02/12/25 13:01 BREATHING Sulfa (Sulfonamide Allergy Intermediate HIVES, Verified 02/12/25 13:01 Antibiotics) DIFF. BREATHING tetracycline Allergy Intermediate HIVES, Verified 02/12/25 13:01 DIFF. BREATHING Review of Systems Review of Systems Systems Reviewed: All systems reviewed, normal except as documented Past Medical History Past Medical History CARDIAC: Positive Cardiac Disorders, Cellulitis, Hypertension (takes PO meds) and Varicose Veins RESPIRATORY: Positive Chronic Obstructive Pulmonary Disease (COPD), Asthma, Pneumonia and Sleep Apnea (oxygen 2 liters at night) GASTROINTESTINAL: Positive Gastrointestinal Disorders, Colitis and Gastroesophageal Reflux Disease GENITOURINARY: Positive Genitourinary Disorders (LEFT KIDNEY REMOVED) REPRODUCTIVE: Positive Endometriosis and Previous Pregnancies () MUSCULOSKELETAL: Positive Musculoskeletal Disorders, Arthritis, Osteoporosis, Gout and Fractures (RIGHT PINKY) ENT: Positive Cataracts ENDOCRINE: Positive Endocrine Disorders and Diabetes Mellitus Type 2 (takes metformin PRN) PSYCHO/SOCIAL: Positive Anxiety OTHER HISTORY: Positive Hospitalization, Shingles, Chicken Pox, Measles, Mumps and Cancer (KIDNEY CA, PRECANCER CERVIX, POLYP IN COLON) Family History FAMILY HISTORY: Positive Family Respiratory Disorders, Family Cardiac Disorders, Family Gastrointestinal Problems, Family Cancer and Family Surgery Surgical History SURGICAL: Positive Nose Surgery (polyp removal x2), Hysterectomy (partial) and Section (X2) ED Exam Narrative Physical exam: Refer to HPI Course Course Course Narrative: CXR is ordered for determining the etiology of shortness of breath. Quality Measures none Orders Category Date Time Status Bedside COVID-19 Antigen Test NOW Care 04/28/25 22:15 Active Bedside Influenza A&B Antigen Test NOW Care 04/28/25 22:15 Completed COVID-19 Screening Questionnaire NOW Care 04/29/25 00:21 Active Decision to Admit X1 Care 04/29/25 00:21 Active EKG (ED ONLY) *Do not use* NOW Care 04/28/25 22:19 Completed Saline [Insert IV] NOW Care 04/28/25 22:15 Active Straight [In and Out Catheter] X1 Care 04/28/25 22:15 Active EKG (ED Only) Stat Exams 04/28/25 22:19 Draft XR chest 1V portable Stat Exams 04/28/25 22:19 Completed ABG [Arterial Blood Gas] Stat Lab 04/28/25 23:06 Completed BNP [B-Type Natriuretic Peptide] Stat Lab 04/28/25 22:28 Completed Bilirubin,Direct Stat Lab 04/28/25 22:28 Completed Blood Culture (Lab) Stat Lab 04/28/25 22:28 Received CBC Stat Lab 04/28/25 22:28 Completed CMP [Comprehensive Metabolic Panel] Stat Lab 04/28/25 22:28 Completed CRP [C-Reactive Protein] Stat Lab 04/28/25 22:28 Completed D-Dimer Stat Lab 04/28/25 22:28 Completed ESR [Sed Rate (ESR)] Stat Lab 04/28/25 22:28 Completed Lactate (Lactic Acid) Stat Lab 04/28/25 22:19 Completed Magnesium Stat Lab 04/28/25 22:28 Completed PT [Prothrombin Time with INR] Stat Lab 04/28/25 22:28 Completed PTT [Partial Thromboplastin Time] Stat Lab 04/28/25 22:28 Completed Procalcitonin Stat Lab 04/28/25 22:28 Completed Troponin I Stat Lab 04/28/25 22:28 Completed UA, C/S IF [Urinalysis, C/S if Indicated] Stat Lab 04/28/25 23:51 Completed Urine Culture Stat Lab 04/28/25 23:51 Received Acetaminophen Tab [Tylenol Tab] Med 04/29/25 00:00 Discontinued 650 mg PO X1 ONE Azithromycin Inj [Zithromax Inj] 500 mg Med 04/28/25 22:23 Discontinued Sodium Chloride 0.9% 250 ml [Ns] 250 ml IV X1 LORazepam [Ativan Inj] Med 04/28/25 22:15 Discontinued 0.5 mg IVP X1 ONE Levalbuterol Rt [Xopenex Rt Ana] Med 04/28/25 22:15 Discontinued 2.5 mg INH X1 ONE MethylPREDNISolone.* [SoluMEDROL Inj] Med 04/28/25 22:15 Discontinued 125 mg IVP X1 ONE Ondansetron Inj [Zofran Inj] Med 04/28/25 22:15 Discontinued 4 mg IVP X1 ONE Sodium Chloride 0.9% 1000 ml [Ns] 1,000 ml Med 04/28/25 23:06 Discontinued IV 999 mls/hr Sodium Chloride 0.9% 1000 ml [Ns] 1,000 ml Med 04/28/25 23:07 Discontinued IV 999 mls/hr Sodium Chloride Rt Ana 0.9% [NS Rt Ana 0.9%] Med 04/28/25 22:15 Active 3 ml INH PRN PRN cefTRIAXone/D5w 1gm IV premix [Rocephin/D5w 1gm IV Med 04/28/25 22:23 Discontinued premix] 1 gm in 50 ml IV X1 levETIRAcetam INJ [Keppra Inj] Med 04/28/25 22:15 Discontinued 1,000 mg IVP X1 ONE Vital Signs Vital signs: Vital Signs Temperature 98.2 F 04/28/25 22:14 Pulse Rate 127 H 04/28/25 22:14 Respiratory Rate 18 04/28/25 22:14 Blood Pressure 147/85 H 04/28/25 22:14 Pulse Oximetry (%) 96 04/28/25 22:14 Oxygen Delivery Method Nasal Cannula 04/28/25 22:14 Oxygen Flow Rate 6 04/28/25 22:14 Shortness of Breath / Dyspnea MDM Narrative MDM Narrative:: Scribe Attestation: I, Pattie Mcneal, am scribing for and in the presence of Dr. Hancock. Provider Notation: Although this document has been carefully reviewed, there may still be some phonetic and other typographical errors.? These errors are purely grammatical due to imperfections in the software program and should not be construed in any way to? compromise the substance of the patient's medical care during this visit. 75 y/o female with Hx Anxiety, HTN, and COPD BIBA presents with about a week history of worsening cough, productive cough, purulent sputum, and dyspnea. Patient is on 2L supplemental oxygen at home, but denies using O2 as prescribed and only uses it PRN. Has been using an more in the past few days. Reports objective fever and severe chills and bodyaches and nausea. No other complaints. Patient data External records reviewed:: [facility] previous records (Reviewed prior ED records from 02/04/25. Patient was seen for Hypertension.) and EMS form Clinical information provided by:: patient and EMS Social determinants that could affect healthcare access:: none Patient has the following chronic illnesses:: Hypertension, Varicose Veins, Chronic Obstructive Pulmonary Disease (COPD), Asthma, Sleep Apnea, Colitis, Gastroesophageal Reflux Disease, Endometriosis, Arthritis, Osteoporosis, Gout, Cataracts, Diabetes Mellitus Type 2, Anxiety How is presenting disease/condition affected by chronic disease/condition?: exacerbated by Evaluation data The following diagnostics were reviewed and interpreted by me:: lab results, radiology exam(s) and EKG tracing(s) (My interpretation of the EKG is: Sinus tachycardia (120 bpm) with nonspecific ST-T changes. Hood Hancock MD) Lab and/or radiology exams considered but not ordered:: None Interpretation Summary: I reviewed all diagnostic test results: My interpretation of the EKG is: Sinus tachycardia (120 bpm) with nonspecific ST-T changes. My interpretation of the chest x-ray is infiltrates. Blood tests remarkable for WBC 14.7. ABG showed pH 7.44, pCO2 41, and pHCO3 28. UA showed positive nitrite, positive leukocyte Estrace, 46 WBC, and bacteria. Covid/Influenza negative. Medications / Prescriptions Medications or Prescriptions considered but not ordered:: None Medication administrations:: Medication Administration History Sodium Chloride (Sodium Chloride Rt Ana 0.9% 3 Ml Nebu) 3 ml INH PRN PRN PRN Reason: SOLN Stop: 05/28/25 22:14 Last Admin: 04/28/25 22:56 Dose: 3 ml Documented By: Discontinued Medications Acetaminophen (Acetaminophen 325 Mg Tablet) 650 mg PO X1 ONE Stop: 04/29/25 00:01 Last Admin: 04/29/25 00:26 Dose: 650 mg Documented By: Ceftriaxone Sodium/Dextrose (Rocephin/D5w 1gm Iv Premix) 1 gm in 50 mls @ 100 mls/hr IV X1 ONE Stop: 04/28/25 22:52 Last Admin: 04/29/25 00:05 Dose: 100 mls/hr Documented By: KIRSTEN Azithromycin 500 mg/ Sodium (Chloride) 250 mls @ 250 mls/hr IV X1 ONE Stop: 04/28/25 23:22 Last Admin: 04/29/25 00:35 Dose: 250 mls/hr Documented By: KIRSTEN Sodium Chloride (Ns) 1,000 mls @ 999 mls/hr IV .Q1H1M ONE Stop: 04/29/25 00:06 Last Admin: 04/29/25 00:05 Dose: 999 mls/hr Documented By: KIRSTEN Sodium Chloride (Ns) 1,000 mls @ 999 mls/hr IV .Q1H1M ONE Stop: 04/29/25 00:07 Last Admin: 04/29/25 00:16 Dose: 999 mls/hr Documented By: KIRSTEN Levalbuterol HCl (Levalbuterol Rt 1.25 Mg/0.5 Ml Nebu) 2.5 mg INH X1 ONE Stop: 04/28/25 22:16 Last Admin: 04/28/25 22:56 Dose: 2.5 mg Documented By: Levetiracetam (Levetiracetam Inj 100 Mg/Ml Vial 5ml) 1,000 mg IVP X1 ONE Stop: 04/28/25 22:16 Lorazepam (Lorazepam 2 Mg/Ml Vial) 0.5 mg IVP X1 ONE Stop: 04/28/25 22:16 Methylprednisolone Sodium Succinate (Methylprednisolone Sod Succ 62.5 Mg/Ml 2ml Vial) 125 mg IVP X1 ONE Stop: 04/28/25 22:16 Last Admin: 04/29/25 00:04 Dose: 125 mg Documented By: CG Ondansetron HCl (Ondansetron Inj 2 Mg/Ml Inj 2 Ml) 4 mg IVP X1 ONE; Protocol Stop: 04/28/25 22:16 Last Admin: 04/29/25 00:04 Dose: 4 mg Documented By: CG Treatment here included: IV fluid, Zofran, Solu-Medrol, neb treatment, Tylenol, Rocephin, and Zithromax. Consultations Consultation(s) initiated? (list below): Yes Consultation #1 (Physician, Specialty, Details): I discussed the case with our hospitalist. About the presentation and exam and diagnostics and treatments here. And need of further care in the hospital. Will accept the patient. Diagnosis Shortness of Breath Differential Diagnosis: acute exacerbation of chronic obstructive airways disease, congestive heart failure, community acquired pneumonia, asthma with exacerbation, pulmonary embolism and other ([place], PE, UTI, pneumonia,) Most likely diagnosis given after review of the tests above:: At this point, diagnoses include: Acute respiratory failure with hypoxia Sepsis Pneumonia COPD exacerbation UTI Admission Indicated Admission indicated?: indicated Explain why admission is indicated or not indicated:: Acute respiratory failure with hypoxia Sepsis Pneumonia COPD exacerbation UTI Admission Request Was there a request for admission?: Yes Admission Attestation Admission request attestation: Discussed case with Dr. Esteban regarding admission. Discussed patients ED course, exam findings, labs, and radiology results. Agreed to accept the patient for admission. Disposition Plan Disposition Plan: Admit Discharge Plan Plan Patient Disposition: Admit Acute Care w/in Hospital Prescriptions/Referrals Prescriptions/Med Rec: No Action diltiazem HCl [Cardizem CD] 240 MG capsule,extended release 24hr 240 mg PO QAM Qty: 0 metoprolol tartrate 25 mg Tablet 25 mg PO BID budesonide-formoterol [Symbicort] 160-4.5 mcg/actuation Hfa Aerosol Inhaler 2 puff INHALATION QAM Spiriva Respimat 1.25 mcg/actuation Mist 2 puff INHALATION QAM metformin 500 mg tablet 500 mg PO PRN PRN (Reason: hyperglycemia) Patient Comments: TAKE 1 TABLET BY MOUTH TWICE A DAY hydrocodone-acetaminophen 5-325 mg tablet 1 tab PO Q6H MDD 5 PRN (Reason: pain) Qty: 20 0RF amlodipine 10 mg Tablet 5 mg PO BID Tradjenta 5 mg Tablet 5 mg PO QAM Referrals: Anca Esteban MD [Primary Care Provider] - In 1 week Problem List Clinical Impression: Sepsis, Acute respiratory failure with hypoxia, COPD with exacerbation, Pneumonia, UTI (urinary tract infection) Patient/Caregiver Discharge Instructions Print Language: Sinhala Stand Alone Forms: [employer] Info., Patient Portal Info Letter
[2025-04-28 22:14] VITALS: BP 147/85; PULSE 127; RESP 18; TEMP 36.8; O2SAT 96
[2025-04-28 22:17] VITALS: PULSE 119; RESP 22; O2SAT 97
--- NOTE | 2025-04-28 22:19 | XR_ITS ---
Examination: AP chest single view TECHNIQUE: AP portable upright chest single view INDICATIONS: Shortness of breath today. FINDINGS: Mild to moderate enlargement cardiac contour Prominent vascular congestion Prominent opacity left base Moderate osteopenia IMPRESSION: Mild heart failure Significant pneumonia left base
--- NOTE | 2025-04-28 22:19 | EKG_ITS ---
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1950 Requested By: Hood Stanton Order Number: [id number] Reading MD: Hood Stanton Measurements Intervals [place] Rate: 120 P: 6 NH: 152 QRS: 32 QRSD: 99 T: -23 QT: 326 QTc: 461 Interpretive Statements SINUS TACHYCARDIA LOW QRS VOLTAGE IN PRECORDIAL LEADS [QRS DEFLECTION < 1.0 mV IN CHEST LEADS] INCOMPLETE RIGHT BUNDLE BRANCH BLOCK [90+ ms QRS DURATION, TERMINAL R IN V1/V2, 40+ ms S IN I/aVL/V4/V5/V6] INFERIOR MYOCARDIAL INFARCTION , OF INDETERMINATE AGE [40+ ms Q WAVE AND/OR ST/T ABNORMALITY IN II/aVF] ANTEROLATERAL MYOCARDIAL INFARCTION , OF INDETERMINATE AGE [40+ ms Q WAVE IN I/aVL/V3-V6] Compared to ECG 02/04/2025 17:39:05 Low QRS voltage now present Sinus rhythm no longer present Myocardial infarct finding still present /store/S0/[id number]
[2025-04-28 22:24] VITALS: BMI 35.2
[2025-04-28 22:42] LABS: Lactate (Lactic Acid) 2.0 mMol/L (0.4-2.0)
[2025-04-28 22:43] LABS: Basophils # (Auto) 0.1 Thou/mm3 (0.0-0.2); Basophils % (Auto) 1 % (0-2.5); Eosinophils # (Auto) 1.4 Thou/mm3 (0.0-0.5); Eosinophils % (Auto) 10 % (0-10); Hematocrit 45.9 % (36.0-46.0); Hemoglobin 15.1 g/dL (12.0-16.0); Immature Granulocytes Auto 0.04 Thou/mm3 (0.00-0.00); Lymphocytes # (Auto) 2.4 Thou/mm3 (1.0-4.8); Lymphocytes % (Auto) 16 % (10-50); Mean Corpuscular HGB Conc 32.9 g/dl (31.0-37.0); Mean Corpuscular Hemoglobin 28.3 pg (25.0-35.0); Mean Corpuscular Volume 86 fL (80-100); Monocytes # (Auto) 0.9 Thou/mm3 (0.0-0.8); Monocytes % (Auto) 6 % (0-12); Neutrophils # (Auto) 9.9 Thou/mm3 (1.8-7.7); Neutrophils % (Auto) 67 % (37-80); Nucleated Red Blood Cell # 0.00 Thou/mm3 (0.00-0.00); Nucleated Red Blood Cell % 0 /100 WBC (0); Platelet Count 226 Thou/mm3 (140-440); RDW Standard Deviation 45.1 fL (36.4-46.3); Red Blood Count 5.33 Miln/mm3 (4.00-5.20); White Blood Count 14.7 Thou/mm3 (3.6-11.0)
[2025-04-28 22:51] LABS: Sed Rate (ESR) 25 mm/hr (0-30)
[2025-04-28] MEDS: SODIUM CHLORIDE RT SOL 0.9% 3 ML NEBU INH (22:56)
[2025-04-28] MEDS: LEVALBUTEROL RT 1.25 MG/0.5 ML NEBU 2.5 MG INH (22:56)
[2025-04-28 22:57] LABS: INR 1.0 (0.9-1.3); Partial Thromboplastin Time 28.2 Seconds (22.0-36.0); Prothrombin Time 10.9 Seconds (9.0-12.2)
[2025-04-28 23:00] LABS: B-Type Natriuretic Peptide 43 pg/mL (0-100)
[2025-04-28 23:09] VITALS: PULSE 107; RESP 18; O2SAT 100
[2025-04-28 23:12] LABS: D-Dimer 351 ng/mL (<600)
[2025-04-28 23:14] LABS: Base Excess 4 (-3-3); HCO3 28 mEq/L (20-26); Inspired Oxygen, FIO2 21 %; O2 Saturation 91 % (91-98); PCO2 41 mmHg (32.0-48.0); pH, Arterial 7.44 (7.35-7.45)
[2025-04-28 23:15] LABS: Alanine Aminotransferase 20 U/L (10-49); Albumin, Serum 4.2 gm/dL (3.4-4.8); Albumin/Globulin Ratio 1.6 (1.2-2.2); Alkaline Phosphatase 99 U/L (46-116); Anion Gap 11 (7-16); Aspartate Amino Transferase 19 U/L (0-34); BUN/Creatinine Ratio 10 Ratio (12-20); Bilirubin,Direct 0.2 mg/dL (0.0-0.3); Bilirubin,Total 0.7 mg/dL (0.3-1.2); Blood Urea Nitrogen 11 mg/dL (9-23); C-Reactive Protein < 0.5 mg/dL (0.0-0.9); Calcium 9.5 mg/dL (8.3-10.6); Calcium (Corrected) 9.5 mg/dL (8.5-10.1); Carbon Dioxide 27.2 mMol/L (20.0-31.0); Chloride 104 mMol/L (98-107); Creatinine (Component) 1.1 mg/dL (0.6-1.3); Estimated Creatinine Clearance 51.5 mL/min (>60); Globulin 2.7 gm/dL (2.3-3.5); Glucose 184 mg/dL (74-106); Magnesium 1.8 mg/dL (1.6-2.6); Osmolality,Calculated 287 (275-295); Potassium 3.8 mMol/L (3.4-5.1); Procalcitonin 0.15 ng/ml (0.0-0.49); Sodium 142 mMol/L (136-145); Total Protein 6.9 gm/dL (5.7-8.2); Troponin I < 0.020 ng/mL (0.0-0.045); eGFR 53 See Note
[2025-04-28 23:18] LABS: Allen Test Performed/OK; PO2 56 mmHg (83-108); Puncture Site Right Radial
[2025-04-28 23:55] LABS: Collection Type, Urine Clean Catch
[2025-04-29] VITALS (14 sets, daily range): BP systolic 109–142; BP diastolic 59–83; PULSE 86–110; RESP 16–27; TEMP 36.3–38.1; O2SAT 90–100; BMI 35.2
[2025-04-29] MEDS: ONDANSETRON INJ 2 MG/ML INJ 2 ML 4 MG IVP (00:04)
[2025-04-29] MEDS: MethylPREDNISolone SOD SUCC 62.5 MG/ML 2ML VIAL 125 MG IVP (00:04)
[2025-04-29] MEDS: SODIUM CHLORIDE 0.9% 1000 ML 1,000 ML 999 ML IV ×2 (00:05→00:16)
[2025-04-29] MEDS: cefTRIAXone/D5w 1gm IV premix 1 GM/50 ML BAG IV ×2 (00:05→21:45)
[2025-04-29 00:09] LABS: Bacteria,Urine Rare; Bilirubin,Urine Negative (Negative); Blood,Urine Negative (Negative); Clarity,Urine Clear (Clear/Hazy); Color,Urine Lt-Yellow (Lt Yel-Yel); Culture Indicated,Urine Yes; Glucose, Urine Negative (Negative); Ketones,Urine Negative (Negative); Leukocyte Esterase,Urine Positive (Negative); Nitrite,Urine Positive (Negative); PH,Urine 6.0 (5.0-7.0); Protein,Urine Negative (Neg - Trace); RBC,Urine 2 /hpf (0-3); Specific Gravity,Urine 1.009 (1.001-1.035); Squamous Epithelial Cell,Urine 8 /hpf (0-5); Urobilinogen,Urine Negative mg/dL (0.0-1.0); WBC,Urine 46 /hpf (0-5)
[2025-04-29] MEDS: ACETAMINOPHEN 325 MG TABLET 650 MG PO (00:26)
[2025-04-29] MEDS: AZITHROMYCIN INJ 500 MG in SODIUM CHLORIDE 0.9% 250 ML 250 ML 250 MG IV (00:35)
[2025-04-29] MEDS: SODIUM CHLORIDE 0.9% 1000 ML 1,000 ML 70 ML IV ×2 (04:08→16:54)
[2025-04-29] MEDS: AZITHROMYCIN 250 MG TABLET 500 MG PO (08:35)
--- NOTE | 2025-04-29 09:02 | PD.RESHP ---
Documentation for date of: 04/29/25 HPI History of Present Illness Chief complaint: Acute respiratory failure with hypoxia History of present illness: Lilia Dallas is a75F pmhx significant for HTN, DM2 and COPD on 2L O2 at home who presents with worsening shortness of breath, productive cough, and wheezing for the past 5 days. Patient reports that she began experiencing shortness of breath beginning on Sunday, with worsening cough, wheezing and headache. She noticed that her blood pressure and heart rate (HR144) were very high this morning, and her O2 sat was 93% on her normal 2 L of oxygen (baseline 96 to 97%), prompting ED visit. She also reports feeling feverish but did not take a temperature at home. Reports that about a month and a half ago she was admitted for pneumonia and discharged with Augmentin, however states she did not finish the course and only took 3 days. Also states that recently she was visited by her brother who was recently discharged for pneumonia. Denies hx of CHF. Patient denies chest pain, abdominal pain. Outpatient service line bus cleaner is Dr. Trent. Denies any cardiac history. She reports had history of a Holter monitor for 3 days but results were okay. UA +nitrities +LE WBC 46. CXR showed mild heart failure and significant pneumonia at left base. EKG shows sinus tachycardia rate of 120. ABG on admission pH 7.44 pO2 56, pCO2 41, HCO3 28. PMHx: HTN, HLD. COPD, DM type II FHx: Father hypertension. Brother CHF. Social Hx: Quit smoking 2014 <1/2 ppd at the time, denies alcohol or recreational/illicit substance use. Independent with all ADLs. Medications: Atorvastatin 10 mg daily, Symbicort, Spiriva, diltiazem 360 mg daily, losartan 100 mg daily In ED, BP 147/85 HR 127 RR 18 Temp 98.2 SpO2 96% on 6L O2. WBC 14.7, Cr 1.1 with GFR 53, glucos 184, lactic acid 2.0, Trops neg, BNP 43, Procal 0.15, and ESR 25. In ED, given albuterol, methylprednisolone 125 mg, ceftriaxone and azithromycin x1, zofran, tylenol, and 2L of NS. Patient was admitted for further workup. Review of Systems Review of Systems Narrative Review of Systems: CONSTITUTIONAL: Patient denies any fever, chills. Complaining of fatigue HEENT: Denies any visual disturbances or hearing problems. CARDIOVASCULAR: Patient denies any chest pain, swelling in the lower extremities. PULMONARY: Patient complaining of shortness of breath, cough. GASTROINTESTINAL: Patient denies any abdominal pain, constipation, nausea, vomiting, diarrhea. GENITOURINARY: Patient denies any urinary symptoms of burning or frequency or hematuria, denies any form in the urine. SKIN: Denies any rash. MUSCULOSKELETAL: Denies any muscular skeletal problems of joint pains. Complaining of back pain NEUROLOGICAL: Denies any neurological problems of strokes, seizures or confusion. Denies any memory problems. PSYCHIATRIC: Denies any depression or anxiety. LYMPHATICS : No lymphadenopathy Exam Vital Signs Temp Pulse Resp BP Pulse Ox O2 Del Method O2 Flow Rate 97.8 F 103 H 19 136/83 H 98 Nasal Cannula 4 04/29/25 06:33 04/29/25 08:45 04/29/25 06:33 04/29/25 06:33 04/29/25 08:45 04/29/25 06:33 04/29/25 08:45 Narrative Exam General: AOx3, no acute distress HEENT: NC/AT, mucous membranes moist, bilateral sclera anicteric Cardiovascular: regular rate and rhythm, S1/S2 present, no murmurs appreciated Pulmonary: + Bilateral inspiratory and expiratory wheezes Abdominal: soft, non-tender, non-distended, no rebound/guarding, bowel sounds present Extremities: no peripheral edema Skin: warm and dry, intact, no rashes Neuro CN II-XII grossly intact, no focal deficits, alert, following commands Results: Labs 04/28/25 22:28 04/28/25 22:28 Labs: Short CBC 04/28/25 Range/Units 22:28 WBC 14.7 H (3.6-11.0) Thou/mm3 Hgb 15.1 (12.0-16.0) g/dL Hct 45.9 (36.0-46.0) % Plt Count 226 D (140-440) Thou/mm3 BMP 04/28/25 22:28 Sodium 142 Potassium 3.8 Chloride 104 Carbon Dioxide 27.2 BUN 11 Creatinine 1.1 Glucose 184 H Calcium 9.5 Cardiac Enzymes 04/28/25 Range/Units 22:28 Troponin I < 0.020 (0.0-0.045) ng/mL Liver Function 04/28/25 Range/Units 22:28 Total Bilirubin 0.7 (0.3-1.2) mg/dL Direct Bilirubin 0.2 (0.0-0.3) mg/dL AST 19 (0-34) U/L ALT 20 (10-49) U/L Alkaline Phosphatase 99 (46-116) U/L Albumin 4.2 (3.4-4.8) gm/dL Urine 04/28/25 Range/Units 23:51 Urine Color Lt-Yellow (Lt Yel-Yel) Urine Clarity Clear (Clear/Hazy) Urine pH 6.0 (5.0-7.0) Ur Specific Miller 1.009 (1.001-1.035) Urine Protein Negative (Neg - Trace) Urine Glucose (UA) Negative (Negative) ABG Interpretation ABG results: 04/28/25 23:06 ABG pH 7.44 ABG pCO2 41 ABG pO2 56 L* ABG HCO3 28 H ABG O2 Saturation 91 ABG Base Excess 4 H Quality Measures Quality Measures none Advance care planning discussed with:: patient Medications Home Medications and Allergies Home Medications ?Medication ?Instructions ?Recorded ?Confirmed ?Type diltiazem HCl 240 mg 360 mg PO QAM ##0 06/29/09 04/29/25 History capsule,extended release 24 hr (Cardizem CD) budesonide-formoterol HFA 160 2 puff inhalation QAM 10/27/20 04/29/25 History mcg-4.5 mcg/actuation aerosol inhaler (Symbicort) tiotropium bromide 1.25 2 puff inhalation QAM 11/15/21 04/29/25 History mcg/actuation mist for inhalation (Spiriva Respimat) metformin 500 mg tablet 500 mg PO PRN PRN hyperglycemia 01/18/22 04/29/25 History atorvastatin 10 mg tablet 10 mg PO QPM 04/29/25 04/29/25 History diltiazem HCl 360 mg capsule,24 360 mg PO QDAY 04/29/25 04/29/25 History hr,extended release losartan 100 mg tablet 100 mg PO HS 04/29/25 04/29/25 History Allergies Allergy/AdvReac Type Severity Reaction Status Date / Time aspirin Allergy Intermediate HIVES,DIFF. Verified 02/12/25 13:01 BREATHING ciprofloxacin Allergy Intermediate Bradycardia Verified 02/12/25 13:01 codeine Allergy Intermediate HIVES,DIFF. Verified 02/12/25 13:01 BREATHING erythromycin base Allergy Intermediate HIVES,DIFF. Verified 02/12/25 13:01 BREATHING ibuprofen Allergy Intermediate EYES Verified 02/12/25 13:01 SWELL,DIFF. BREATHING iodine Allergy Intermediate HIVES, Verified 02/12/25 13:01 DIFF. BREATHING Macrolide Antibiotics Allergy Intermediate HIVES,DIFF. Verified 02/12/25 13:01 BREATHING Penicillins Allergy Intermediate HIVES, Verified 02/12/25 13:01 DIFF. BREATHING propoxyphene Allergy Intermediate HIVES,DIFF. Verified 02/12/25 13:01 BREATHING Sulfa (Sulfonamide Allergy Intermediate HIVES, Verified 02/12/25 13:01 Antibiotics) DIFF. BREATHING tetracycline Allergy Intermediate HIVES, Verified 02/12/25 13:01 DIFF. BREATHING Visit Medications Acetaminophen (Acetaminophen 325 Mg Tablet) 650 mg PO Q4HR PRN PRN Reason: PAIN SCALE 1-3 (mild Stop: 05/29/25 01:41 Al Hydrox/Mg Hydrox/Simethicone (Mg Hyd/Al Hyd/Aron (Maalox Reg) Susp 30 Ml Udc) 30 ml PO Q4HR PRN PRN Reason: Heartburn or Upset Stomach Stop: 05/29/25 01:41 Albuterol/Ipratropium (Albuterol/Ipratropium (Duoneb) Rt Ana 3 Ml Nebu) 3 ml INH Q4HRRT PRN PRN Reason: SOB or wheezing Stop: 05/29/25 10:59 Azithromycin (Azithromycin 250 Mg Tablet) 500 mg PO DAILY ABENA Stop: 05/06/25 08:59 Last Admin: 04/29/25 08:35 Dose: 500 mg Ceftriaxone Sodium/Dextrose (Rocephin/D5w 1gm Iv Premix) 1 gm in 50 mls @ 100 mls/hr IV QDAY ABENA Stop: 05/06/25 20:59 Sodium Chloride (Ns) 1,000 mls @ 70 mls/hr IV .[id number] ABENA Stop: 05/29/25 02:05 Last Admin: 04/29/25 04:08 Dose: 70 mls/hr Sodium Chloride (Sodium Chloride Rt Ana 0.9% 3 Ml Nebu) 3 ml INH PRN PRN PRN Reason: SOLN Stop: 05/28/25 22:14 Last Admin: 04/28/25 22:56 Dose: 3 ml Discontinued Medications Acetaminophen (Acetaminophen 325 Mg Tablet) 650 mg PO X1 ONE Stop: 04/29/25 00:01 Last Admin: 04/29/25 00:26 Dose: 650 mg Ceftriaxone Sodium/Dextrose (Rocephin/D5w 1gm Iv Premix) 1 gm in 50 mls @ 100 mls/hr IV X1 ONE Stop: 04/28/25 22:52 Last Infusion: 04/29/25 00:35 Dose: Infused Azithromycin 500 mg/ Sodium (Chloride) 250 mls @ 250 mls/hr IV X1 ONE Stop: 04/28/25 23:22 Last Infusion: 04/29/25 01:35 Dose: Infused Sodium Chloride (Ns) 1,000 mls @ 999 mls/hr IV .Q1H1M ONE Stop: 04/29/25 00:06 Last Infusion: 04/29/25 01:06 Dose: Infused Sodium Chloride (Ns) 1,000 mls @ 999 mls/hr IV .Q1H1M ONE Stop: 04/29/25 00:07 Last Infusion: 04/29/25 01:17 Dose: Infused Levalbuterol HCl (Levalbuterol Rt 1.25 Mg/0.5 Ml Nebu) 2.5 mg INH X1 ONE Stop: 04/28/25 22:16 Last Admin: 04/28/25 22:56 Dose: 2.5 mg Levetiracetam (Levetiracetam Inj 100 Mg/Ml Vial 5ml) 1,000 mg IVP X1 ONE Stop: 04/28/25 22:16 Last Admin: 04/29/25 03:56 Dose: Not Given Lorazepam (Lorazepam 2 Mg/Ml Vial) 0.5 mg IVP X1 ONE Stop: 04/28/25 22:16 Last Admin: 04/29/25 03:59 Dose: Not Given Methylprednisolone Sodium Succinate (Methylprednisolone Sod Succ 62.5 Mg/Ml 2ml Vial) 125 mg IVP X1 ONE Stop: 04/28/25 22:16 Last Admin: 04/29/25 00:04 Dose: 125 mg Ondansetron HCl (Ondansetron Inj 2 Mg/Ml Inj 2 Ml) 4 mg IVP X1 ONE; Protocol Stop: 04/28/25 22:16 Last Admin: 04/29/25 00:04 Dose: 4 mg Assessment & Plan Plan Lilia Dallas is a75F pmhx significant for HTN and COPD on 2L O2 at home who is admitted for acute hypoxic respiratory failure, found to have pneumonia and UTI. # Acute hypoxic respiratory failure # Community acquired pneumonia # Oxygen dependent COPD Patient presents with shortness of breath requiring increasing oxygen, wheezing and productive cough for the past 5 days. Reports using home 2 L of O2, Symbicort, Spiriva, and albuterol at home without relief. Reports recent sick contact. Differential includes CAP versus COPD exacerbation. Checks x-ray shows mild heart failure and significant pneumonia at left base. EKG shows sinus tachycardia rate of 120. ABG on admission pH 7.44 pO2 56, pCO2 41, HCO3 28. On admission HR 127, SpO2 96% on 6L O2 and WBC 14.7. - s/p ceftriaxone and azithromycin x1, and methylprednisolone 125 mg in ED - supplemental O2 as needed - maintenance NS 70 mLs/h - abx: ceftriaxone and azithromycin QD (04/29- - f/u BCx - Duoneb prn # CKD III # UTI Creatinine 1.1 and GFR 53 on admission, both at baseline. UA on admission +nitrites +LE WBC 46. - continue home losartan - on ceftriaxone - f/u UCx - avoid other nephrotoxic medication - CTM # Type II DM Last HgA1c in 02/2025 6.3. Glucose on admission 184. Not taking medication at home for DM. - SSI and CTM # HTN BP on admission 147/85 - continue home med of losartan 100 mg QD and diltiazem 260 mg QD # HLD - continue home atorvastatin 10 mg QD Hospital management: Disposition: med surg for tx of pneumonia Diet: cardiac DVT prophylaxis: heparin CODE STATUS: limited code, no intubation Plan of care discussed with attending Dr. Esteban, and PGY-2 Dr. Doran. Christina Ruggiero, PGY-1 Attending Provider Attestation/Addendum Patient seen and examined with resident physician Dr. Ruggiero. Note reviewed, agree with findings and recommendations. Currently seen in the ER-presented with shortness of breath, weakness. Diagnosed with pneumonia/COPD exacerbation. Agree with above management.
[2025-04-29] MEDS: INSULIN LISPRO (AdmeLOG) 1 UNIT/0.01 ML UNIT SC ×3 (11:32→21:44)
--- NOTE | 2025-04-29 11:44 | PC.CC ---
Patient is a 75 year-old female who presents to the hospital for COPD, UTI, Pneumonia. ASWNoelle and DIEING OUT MACHINE OPERATOR Student Wandy made [id number] contact with patient. ASW introduced self, role, and reason for visit. Patient appeared alert and oriented to self, location, and situation. Patient provided consent for DIEING OUT MACHINE OPERATOR to remain in the room during assessment. Patient was pleasant and engaged in initial assessment. Patient confirmed information on demographics and reports to living at home with her daughter. She reports her medical decision maker in the event she is unable to make her own medical decisions is her son, Omar Oneill . Patient ambulates with a walker and needs assistance in completing her ADLs. Patient requires 2L of continuous oxygen and uses a BiPap machine. Patient is not a dialysis patient. Patient's primary provider is Anca Esteban and her pharmacy of choice is [facility]. Upon discharge patient plans to return home. representative phlebotomy services to follow up with any discharge needs.
[2025-04-29] MEDS: HEPARIN SOD INJ 5000 UNIT/ML VIAL SC ×2 (14:57→21:45)
[2025-04-29] MEDS: ALBUTEROL/IPRATROPIUM (Duoneb) RT SOL 3 ML NEBU INH (18:30)
[2025-04-30] VITALS (11 sets, daily range): BP systolic 121–139; BP diastolic 60–73; PULSE 68–99; RESP 17–24; TEMP 36.1–36.3; O2SAT 96–99
[2025-04-30] MEDS: ALBUTEROL/IPRATROPIUM (Duoneb) RT SOL 3 ML NEBU INH ×2 (02:25→20:14)
[2025-04-30] MEDS: HEPARIN SOD INJ 5000 UNIT/ML VIAL SC ×3 (06:02→21:04)
--- NOTE | 2025-04-30 07:10 | ESPR_ITS ---
Documentation for date of: 04/30/25 Subjective Subjective Interval history: Lilia Dallas is a75F pmhx significant for HTN, DM2 and COPD on 2L O2 at home who presents with worsening shortness of breath, productive cough, and wheezing for the past 5 days. Patient reports that she began experiencing shortness of breath beginning on Sunday, with worsening cough, wheezing and headache. She noticed that her blood pressure and heart rate (HR144) were very high this morning, and her O2 sat was 93% on her normal 2 L of oxygen (baseline 96 to 97%), prompting ED visit. She also reports feeling feverish but did not take a temperature at home. Reports that about a month and a half ago she was admitted for pneumonia and discharged with Augmentin, however states she did not finish the course and only took 3 days. Also states that recently she was visited by her brother who was recently discharged for pneumonia. Denies hx of CHF. Patient denies chest pain, abdominal pain. 04/30/25: No acute overnight events. Patient was seen and examined at bedside. Patient is feeling much better today and is now only on 2 L nasal cannula. She reports that her breathing is better and denies shortness of breath. She is able to ambulate to the restroom on her own. Exam Vital Signs Temp Pulse Resp BP Pulse Ox O2 Del Method O2 Flow Rate 96.9 F 87 19 133/70 H 96 Nasal Cannula 2 04/30/25 04:00 04/30/25 04:00 04/30/25 04:00 04/30/25 04:00 04/30/25 04:00 04/30/25 04:00 04/30/25 04:00 Narrative Exam General: AOx3, no acute distress HEENT: NC/AT, mucous membranes moist, bilateral sclera anicteric Cardiovascular: regular rate and rhythm, S1/S2 present, no murmurs appreciated Pulmonary: + mild bilateral inspiratory and expiratory wheezes Abdominal: soft, non-tender, non-distended, no rebound/guarding, bowel sounds present Extremities: no peripheral edema Skin: warm and dry, intact, no rashes Neuro CN II-XII grossly intact, no focal deficits, alert, following commands Objective Labs 05/01/25 05:04 04/30/25 07:00 ABG Interpretation ABG results: 04/28/25 23:06 ABG pH 7.44 ABG pCO2 41 ABG pO2 56 L* ABG HCO3 28 H ABG O2 Saturation 91 ABG Base Excess 4 H Quality Measures Quality Measures none Advance care planning discussed with:: patient Assessment & Plan Assessment Current Active Medications: Generic Name Dose Route Start Last Admin Trade Name Abdirizak PRN Reason Stop Dose Admin Acetaminophen 650 mg 04/29/25 01:42 Acetaminophen 325 Mg Tablet PO 05/29/25 01:41 Q4HR PRN PAIN SCALE 1-3 (mild Albuterol/Ipratropium 3 ml 04/29/25 08:59 04/30/25 02:25 Albuterol/Ipratropium (Duoneb) Rt Ana 3 Ml Nebu INH 05/29/25 10:59 3 ml Q4HRRT PRN Administration SOB or wheezing Atorvastatin Calcium 10 mg 04/30/25 21:00 Atorvastatin Calcium 10 Mg Tablet PO 05/30/25 20:59 QPM ABENA Azithromycin 500 mg 04/29/25 09:00 04/29/25 08:35 Azithromycin 250 Mg Tablet PO 05/06/25 08:59 500 mg DAILY ABENA Administration Dextrose 25 ml 04/29/25 10:09 Dextrose 50%-Water Inj 50 Ml Syringe IV 05/29/25 10:08 Q15MIN PRN BG 50-70 responsive npo pt Dextrose 50 ml 04/29/25 10:09 Dextrose 50%-Water Inj 50 Ml Syringe IV 05/29/25 10:08 Q15MIN PRN BG <50 OR BG <70 & pt unresponsive Glucagon 1 mg 04/29/25 10:09 Glucagon Inj 1 Mg Vial IM Q15MIN PRN BG <70, and no IV access Heparin Sodium (Porcine) 5,000 unit 04/29/25 14:00 04/30/25 06:02 Heparin Sod Inj 5000 Unit/Ml Vial SC 05/13/25 13:59 5,000 unit TID ABENA Administration Ceftriaxone Sodium/Dextrose 1 gm in 50 mls @ 100 mls/hr 04/29/25 21:00 04/29/25 21:45 Rocephin/D5w 1gm Iv Premix IV 05/06/25 20:59 100 mls/hr QDAY ABENA Administration Sodium Chloride 1,000 mls @ 70 mls/hr 04/29/25 02:06 04/29/25 16:54 Ns IV 05/29/25 02:05 70 mls/hr .[id number] ABENA Administration Insulin Human Lispro 0 unit 04/29/25 11:30 04/29/25 21:44 Insulin Lispro (Admelog) 1 Unit/0.01 Ml Unit SC 05/29/25 11:29 3 unit ACHS ABENA Administration Protocol Non-Formulary Medication 2 puff 04/30/25 09:00 Tiotropium [place] [Spiriva Respimat] IH 05/30/25 08:59 QAM ABENA Plan Plan Lilia Dallas is a75F pmhx significant for HTN and COPD on 2L O2 at home who is admitted for acute hypoxic respiratory failure, found to have pneumonia and UTI. # Community acquired pneumonia # Oxygen dependent COPD # Acute hypoxic respiratory failure, resolved Differential includes CAP versus COPD exacerbation. Checks x-ray shows mild heart failure and significant pneumonia at left base. ABG on admission pH 7.44 pO2 56, pCO2 41, HCO3 28. On admission HR 127, SpO2 96% on 6L O2 and WBC 14.7 --> 19.1 likely 2/2 steroids. BCx NGTD. - s/p ceftriaxone and azithromycin x1, and methylprednisolone 125 mg in ED - supplemental O2 as needed - stop NS 70 mLs/h - abx: ceftriaxone and azithromycin (04/29- - Duoneb q4h prn # UTI # CKD III # Hypophosphatemia Creatinine 1.1 and GFR 53 on admission, both at baseline. UA on admission +nitrites +LE WBC 46. Prelim UCx +GNR. Phos 2.0. - on ceftriaxone - gave KPhos - avoid other nephrotoxic medication - CTM # Type II DM Last HgA1c in 02/2025 6.3. Not taking medication at home for DM. Glucose 217 today, likely 2/2 steroid use. - SSI and CTM # HTN Current BP 120s/60s - hold home med of losartan 100 mg QD and diltiazem 360 mg QD Hospital management: Disposition: med surg for tx of pneumonia Diet: cardiac / carb low DVT prophylaxis: heparin CODE STATUS: limited code, no intubation Plan of care discussed with attending Dr. Esteban, and PGY-2 Dr. Doran. Christina Ruggiero DO, PGY-1 Attending Provider Attestation/Addendum Patient seen and examined with resident physician Dr. Ruggiero. Note reviewed, agree with findings and recommendations with few changes made. Patient has hypoxic respiratory failure secondary to anemia. Continue with antibiotics. Ambulate.
[2025-04-30 07:17] LABS: Basophils # (Auto) 0.0 Thou/mm3 (0.0-0.2); Basophils % (Auto) 0 % (0-2.5); Eosinophils # (Auto) 0.0 Thou/mm3 (0.0-0.5); Eosinophils % (Auto) 0 % (0-10); Hematocrit 42.0 % (36.0-46.0); Hemoglobin 13.3 g/dL (12.0-16.0); Immature Granulocytes Auto 0.10 Thou/mm3 (0.00-0.00); Lymphocytes # (Auto) 1.8 Thou/mm3 (1.0-4.8); Lymphocytes % (Auto) 10 % (10-50); Mean Corpuscular HGB Conc 31.7 g/dl (31.0-37.0); Mean Corpuscular Hemoglobin 29.0 pg (25.0-35.0); Mean Corpuscular Volume 92 fL (80-100); Monocytes # (Auto) 1.2 Thou/mm3 (0.0-0.8); Monocytes % (Auto) 7 % (0-12); Neutrophils # (Auto) 15.9 Thou/mm3 (1.8-7.7); Neutrophils % (Auto) 83 % (37-80); Nucleated Red Blood Cell # 0.00 Thou/mm3 (0.00-0.00); Nucleated Red Blood Cell % 0 /100 WBC (0); Platelet Count 201 Thou/mm3 (140-440); RDW Standard Deviation 47.9 fL (36.4-46.3); Red Blood Count 4.59 Miln/mm3 (4.00-5.20); White Blood Count 19.1 Thou/mm3 (3.6-11.0)
[2025-04-30 07:35] LABS: Albumin, Serum 3.6 gm/dL (3.4-4.8); Anion Gap 7 (7-16); BUN/Creatinine Ratio 14 Ratio (12-20); Blood Urea Nitrogen 14 mg/dL (9-23); Calcium 8.9 mg/dL (8.3-10.6); Calcium (Corrected) 9.2 mg/dL (8.5-10.1); Carbon Dioxide 27.7 mMol/L (20.0-31.0); Chloride 110 mMol/L (98-107); Creatinine (Component) 1.0 mg/dL (0.6-1.3); Estimated Creatinine Clearance 56.6 mL/min (>60); Glucose 217 mg/dL (74-106); Osmolality,Calculated 296 (275-295); Phosphorous 2.0 mg/dL (2.4-5.1); Potassium 4.2 mMol/L (3.4-5.1); Sodium 145 mMol/L (136-145); eGFR 59 See Note
[2025-04-30] MEDS: INSULIN LISPRO (AdmeLOG) 1 UNIT/0.01 ML UNIT SC ×3 (07:52→20:54)
[2025-04-30] MEDS: SODIUM CHLORIDE 0.9% 1000 ML 1,000 ML 70 ML IV (07:57)
[2025-04-30] MEDS: AZITHROMYCIN 250 MG TABLET 500 MG PO (09:56)
[2025-04-30] MEDS: POTASSIUM PHOS 22.5 MMOL in SODIUM CHLORIDE 0.9% 500 ML 500 ML 82.778 MMOL IV (11:31)
[2025-04-30] MEDS: DOCUSATE SOD 100 MG CAPSULE PO (18:05)
[2025-04-30] MEDS: cefTRIAXone/D5w 1gm IV premix 1 GM/50 ML BAG IV (20:53)
[2025-04-30] MEDS: ATORVASTATIN CALCIUM 10 MG TABLET PO (20:55)
[2025-04-30] MEDS: ACETAMINOPHEN 325 MG TABLET 650 MG PO (20:55)
[2025-05-01] VITALS: BP 154/98; PULSE 88; PULSE 96; RESP 19; TEMP 36.2; O2SAT 95
[2025-05-01 04:00] VITALS: BP 131/68; PULSE 80; PULSE 96; RESP 19; TEMP 36.4; O2SAT 94
[2025-05-01 06:00] LABS: Basophils # (Auto) 0.1 Thou/mm3 (0.0-0.2); Basophils % (Auto) 1 % (0-2.5); Eosinophils # (Auto) 0.5 Thou/mm3 (0.0-0.5); Eosinophils % (Auto) 5 % (0-10); Hematocrit 44.0 % (36.0-46.0); Hemoglobin 13.9 g/dL (12.0-16.0); Immature Granulocytes Auto 0.10 Thou/mm3 (0.00-0.00); Lymphocytes # (Auto) 2.6 Thou/mm3 (1.0-4.8); Lymphocytes % (Auto) 24 % (10-50); Mean Corpuscular HGB Conc 31.6 g/dl (31.0-37.0); Mean Corpuscular Hemoglobin 29.0 pg (25.0-35.0); Mean Corpuscular Volume 92 fL (80-100); Monocytes # (Auto) 0.9 Thou/mm3 (0.0-0.8); Monocytes % (Auto) 8 % (0-12); Neutrophils # (Auto) 6.8 Thou/mm3 (1.8-7.7); Neutrophils % (Auto) 62 % (37-80); Nucleated Red Blood Cell # 0.00 Thou/mm3 (0.00-0.00); Nucleated Red Blood Cell % 0 /100 WBC (0); Platelet Count 182 Thou/mm3 (140-440); RDW Standard Deviation 48.6 fL (36.4-46.3); Red Blood Count 4.79 Miln/mm3 (4.00-5.20); White Blood Count 10.9 Thou/mm3 (3.6-11.0)
[2025-05-01] MEDS: HEPARIN SOD INJ 5000 UNIT/ML VIAL SC (06:05)
[2025-05-01 06:33] LABS: Alanine Aminotransferase 20 U/L (10-49); Albumin, Serum 3.6 gm/dL (3.4-4.8); Albumin/Globulin Ratio 1.6 (1.2-2.2); Alkaline Phosphatase 89 U/L (46-116); Anion Gap 9 (7-16); Aspartate Amino Transferase 19 U/L (0-34); BUN/Creatinine Ratio 13 Ratio (12-20); Bilirubin,Total 0.3 mg/dL (0.3-1.2); Blood Urea Nitrogen 13 mg/dL (9-23); Calcium 8.7 mg/dL (8.3-10.6); Calcium (Corrected) 9.0 mg/dL (8.5-10.1); Carbon Dioxide 29.9 mMol/L (20.0-31.0); Chloride 108 mMol/L (98-107); Creatinine (Component) 1.0 mg/dL (0.6-1.3); Estimated Creatinine Clearance 56.6 mL/min (>60); Globulin 2.3 gm/dL (2.3-3.5); Glucose 175 mg/dL (74-106); Magnesium 1.5 mg/dL (1.6-2.6); Osmolality,Calculated 296 (275-295); Phosphorous 2.6 mg/dL (2.4-5.1); Potassium 3.8 mMol/L (3.4-5.1); Sodium 147 mMol/L (136-145); Total Protein 5.9 gm/dL (5.7-8.2); eGFR 59 See Note
[2025-05-01 08:00] VITALS: PULSE 82
[2025-05-01 08:11] VITALS: BP 134/77; PULSE 85; RESP 17; TEMP 36.6; O2SAT 97
[2025-05-01] MEDS: cefTRIAXone/D5w 1gm IV premix 1 GM/50 ML BAG IV (08:14)
[2025-05-01] MEDS: AZITHROMYCIN 250 MG TABLET 500 MG PO (08:14)
--- NOTE | 2025-05-01 08:15 | PC.NURSE ---
DR. LANDIS MADE AWARE PTS MAG 1.5, PT HAD FREQUENT PVCS LAST NIGHT. WILL PUT IN ORDERS.
--- NOTE | 2025-05-01 08:23 | PC.NURSE ---
DR. LANDIS AT BEDSIDE REVIEWED ALLERGIES PT NOT ALLERGIC TO ERYTHROMYCIN BASE OR MACROLIDE ANTIBIOTICS, ALLERGIES UPDATED.
[2025-05-01] MEDS: Magnesium Sulfate 2 GM Ivpb 2 GM/50 ML BAG IV (09:25)
--- NOTE | 2025-05-01 09:25 | ESDS_ITS ---
Planned Discharge Date 05/01/25 DS: Providers Provider Date of admission: 04/29/25 01:44 Primary care physician: Anca Esteban MD Admitting Provider: Anca Esteban MD Attending Provider on Admission: Anca Esteban MD Attending Provider on DC: RESIDENT Snehal Discharging Provider: RESIDENT Snehal DS: Diagnosis Problem List Completed Was Problem List Reviewed/Reconciled?: Yes Hospital Course Hospital Course Hospital course: Summary: Lilia Dallas is a75F pmhx significant for HTN and COPD on 2L O2 at home who is admitted for acute hypoxic respiratory failure, found to have pneumonia and UTI. Patient reports that she began experiencing shortness of breath beginning on Sunday, with worsening cough, wheezing and headache. She noticed that her blood pressure and heart rate (HR144) were very high this morning, and her O2 sat was 93% on her normal 2 L of oxygen (baseline 96 to 97%), prompting ED visit. She also reports feeling feverish but did not take a temperature at home. Reports that about a month and a half ago she was admitted for pneumonia and discharged with Augmentin, however states she did not finish the course and only took 3 days. 04/30/25: No acute overnight events. Patient was seen and examined at bedside. Patient is feeling much better today and is now only on 2 L nasal cannula. She reports that her breathing is better and denies shortness of breath. She is able to ambulate to the restroom on her own. 05/01/25: No acute overnight events. Patient was seen and examined at bedside. No new complaints. Patient is stable and feels ready for discharge. Currently on 2L of O2, already has home oxygen. Discharge Recommendations: - Take all medications as prescribed - Start cefuroxime 400 mg twice a day for 10 days - Take Baclofen 5 mg as needed for muscle spasms - Follow up with PCP Dr. Esteban within a week - If your symptoms worsen, please week immediate medical attention and return to your nearest emergency room Discharge diagnoses: # Community acquired pneumonia # Oxygen dependent COPD # Acute hypoxic respiratory failure # UTI # CKD III # Hypophosphatemia # Type II DM # HTN Plan of care discussed with attending Dr. Esteban. Christina Ruggiero DO, PGY-1 Status at Discharge Cognitive/behavioral status at discharge: Stable Functional status at discharge: independent ambulation Overall status at discharge: patient is back to baseline Time Spent with Patient Time attestation: Total time spent providing and/or coordinating discharge services: Time spent: Greater than 30 minutes Exam Vital Signs Temp Pulse Resp BP Pulse Ox O2 Del Method O2 Flow Rate 97.8 F 85 17 134/77 H 97 Nasal Cannula 2 05/01/25 08:11 05/01/25 08:11 05/01/25 08:11 05/01/25 08:11 05/01/25 08:11 05/01/25 08:11 05/01/25 08:11 Narrative Exam General: AOx3, no acute distress HEENT: NC/AT, mucous membranes moist, bilateral sclera anicteric Cardiovascular: regular rate and rhythm, S1/S2 present, no murmurs appreciated Pulmonary: + mild bilateral inspiratory and expiratory wheezes Abdominal: soft, non-tender, non-distended, no rebound/guarding, bowel sounds present Extremities: no peripheral edema Skin: warm and dry, intact, no rashes Neuro CN II-XII grossly intact, no focal deficits, alert, following commands Discharge Plan Plan Patient Disposition: HOME (Self Care) Patient condition on transfer: Stable Prescriptions/Referrals Prescriptions/Med Rec: New cefuroxime axetil 500 mg tablet 500 mg PO BID Qty: 14 0RF Continued diltiazem HCl [Cardizem CD] 240 MG capsule,extended release 24hr 360 mg PO QAM Qty: 0 budesonide-formoterol [Symbicort] 160-4.5 mcg/actuation Hfa Aerosol Inhaler 2 puff INHALATION QAM Spiriva Respimat 1.25 mcg/actuation Mist 2 puff INHALATION QAM metformin 500 mg tablet 500 mg PO PRN PRN (Reason: hyperglycemia) Patient Comments: TAKE 1 TABLET BY MOUTH TWICE A DAY diltiazem HCl 360 mg capsule,extended release 24 hr 360 mg PO QDAY losartan 100 mg tablet 100 mg PO HS atorvastatin 10 mg tablet 10 mg PO QPM Referrals: Anca Esteban MD [Primary Care Provider] - Patient/Caregiver Discharge Instructions Discharge Activity: activity as tolerated Print Language: Upper Sorbian Activity Restrictions/Additional Instructions: f/u with me in 1-2weeks Stand Alone Forms: [employer] Info., Patient Portal Info Letter Discharge Order Discharge Orders: Discharge (Routine); Ordered 05/01/25 Ordered By: Christina Ruggiero Quality Discharge Quality Measures VTE prophylaxis Attestestation MD Attestation Patient seen and examined with resident physician Dr. Ruggiero. Note reviewed, agree with findings and recommendations with changes made. Patient admitted with pneumonia and got better with antibiotics. Patient will be discharged on p.o. cefuroxime. Follow-up with me in 1 to 2 weeks
[2025-05-01 11:10] VITALS: PULSE 92; PULSE 95; RESP 18; RESP 20; O2SAT 93; O2SAT 99
[2025-05-01] MEDS: ALBUTEROL/IPRATROPIUM (Duoneb) RT SOL 3 ML NEBU INH (11:10)
== END 2025-05-01 12:12 | disposition home or self-care (01) | DRG 193 ==
LOC: SERX 04-29 00:21 → SERHOLD 04-29 02:27 → S3NX 04-30 06:12
PROVIDERS: Admitting Provider Internal Medicine; Emergency Provider Emergency Medicine; PCP Internal Medicine; Visit Provider Internal Medicine
DX: J18.9 Pneumonia, unspecified organism (principal); J96.01 Acute respiratory failure with hypoxia; J44.0 Chronic obstructive pulmonary disease with (acute) lower respiratory infection; J44.1 Chronic obstructive pulmonary disease with (acute) exacerbation; N39.0 Urinary tract infection, site not specified; I13.0 Hypertensive heart and chronic kidney disease with heart failure and stage 1 through stage 4 chronic kidney disease, or unspecified chronic kidney disease; E11.22 Type 2 diabetes mellitus with diabetic chronic kidney disease; E78.5 Hyperlipidemia, unspecified; I50.9 Heart failure, unspecified; N18.30 Chronic kidney disease, stage 3 unspecified; M81.0 Age-related osteoporosis without current pathological fracture; E83.39 Other disorders of phosphorus metabolism; D63.1 Anemia in chronic kidney disease; Z79.84 Long term (current) use of oral hypoglycemic drugs; Z99.81 Dependence on supplemental oxygen; Z88.6 Allergy status to analgesic agent; Z88.5 Allergy status to narcotic agent; Z88.0 Allergy status to penicillin; Z88.8 Allergy status to other drugs, medicaments and biological substances; Z88.2 Allergy status to sulfonamides; Z88.1 Allergy status to other antibiotic agents
CPT/HCPCS: 36415; 36600; 71045; 80053; 80069; 81001; 82248; 82803; 83605; 83735; 83880; 84100; 84145; 84484; 85025; 85379; 85610; 85652; 85730; 86140; 87040; 87077; 87086; 87186; 87400; 87811; 93225; 94640; 96361; 96365; 96366; 96372; 96375; A9270; J0456; J0696; J1644; J1815; J2405; J2919; J3475; J7030; J7050; J7999

== ENCOUNTER → 2025-07-16 | Outpatient (CLI) | payer MEDICARE, MEDICAID, SELFPAY ==
[2025-07-16 11:46] LABS: Glucose Estimated Average 146 mg/dL (80-131); Hemoglobin A1C 6.7 % Hgb (4.8-6.0)
[2025-07-16 11:51] LABS: Alanine Aminotransferase 18 U/L (10-49); Albumin, Serum 4.3 gm/dL (3.4-4.8); Albumin/Globulin Ratio 2.0 (1.2-2.2); Alkaline Phosphatase 83 U/L (46-116); Anion Gap 9 (7-16); Aspartate Amino Transferase 15 U/L (0-34); BUN/Creatinine Ratio 19 Ratio (12-20); Bilirubin,Total 0.8 mg/dL (0.3-1.2); Blood Urea Nitrogen 19 mg/dL (9-23); Calcium 9.6 mg/dL (8.3-10.6); Calcium (Corrected) 9.6 mg/dL (8.5-10.1); Carbon Dioxide 31.1 mMol/L (20.0-31.0); Cardiac Risk Estimate 2.8 RATIO (3.7-5.6); Chloride 105 mMol/L (98-107); Cholesterol 141 mg/dL (132-200); Creatinine (Component) 1.0 mg/dL (0.6-1.3); Globulin 2.1 gm/dL (2.3-3.5); Glucose 117 mg/dL (74-106); HDL Cholesterol 50 mg/dL (40-60); LDL Cholesterol,Calculated 66 mg/dL (0-130); Osmolality,Calculated 291 (275-295); Potassium 4.1 mMol/L (3.4-5.1); Sodium 145 mMol/L (136-145); Total Protein 6.4 gm/dL (5.7-8.2); Triglycerides 127 mg/dL (30-150); eGFR 59 See Note
== END | disposition home or self-care (01) ==
LOC: COPL 11:00
PROVIDERS: PCP Internal Medicine; Referring Provider Internal Medicine; Visit Provider Internal Medicine Cardiovascular Disease
DX: E11.9 Type 2 diabetes mellitus without complications (principal); I10 Essential (primary) hypertension; E78.5 Hyperlipidemia, unspecified
CPT/HCPCS: 36415; 80053; 80061; 83036

== ENCOUNTER → 2025-10-21 | Outpatient (CLI) | payer MEDICARE, MEDICAID, SELFPAY ==
[2025-10-21 10:00] LABS: Collection Type, Urine Clean Catch
[2025-10-21 10:24] LABS: Basophils # (Auto) 0.1 Thou/mm3 (0.0-0.2); Basophils % (Auto) 1 % (0-2.5); Eosinophils # (Auto) 1.1 Thou/mm3 (0.0-0.5); Eosinophils % (Auto) 10 % (0-10); Hematocrit 48.1 % (36.0-46.0); Hemoglobin 15.4 g/dL (12.0-16.0); Immature Granulocytes Auto 0.04 Thou/mm3 (0.00-0.00); Lymphocytes # (Auto) 2.7 Thou/mm3 (1.0-4.8); Lymphocytes % (Auto) 24 % (10-50); Mean Corpuscular HGB Conc 32.0 g/dl (31.0-37.0); Mean Corpuscular Hemoglobin 29.1 pg (25.0-35.0); Mean Corpuscular Volume 91 fL (80-100); Monocytes # (Auto) 0.9 Thou/mm3 (0.0-0.8); Monocytes % (Auto) 8 % (0-12); Neutrophils # (Auto) 6.6 Thou/mm3 (1.8-7.7); Neutrophils % (Auto) 58 % (37-80); Nucleated Red Blood Cell # 0.00 Thou/mm3 (0.00-0.00); Nucleated Red Blood Cell % 0 /100 WBC (0); Platelet Count 230 Thou/mm3 (140-440); RDW Standard Deviation 49.2 fL (36.4-46.3); Red Blood Count 5.30 Miln/mm3 (4.00-5.20); White Blood Count 11.5 Thou/mm3 (3.6-11.0)
[2025-10-21 10:35] LABS: Glucose Estimated Average 140 mg/dL (80-131); Hemoglobin A1C 6.5 % Hgb (4.8-6.0)
[2025-10-21 10:43] LABS: Parathyroid Hormone Intact 67.4 pg/ml (18.5-88.0)
[2025-10-21 10:44] LABS: Creatinine MALB Rnd Ur 81 mg/dL (30-125); Microalbumin Creat Ratio 75 mg/gCrea (<30); Microalbumin, Random Urine 61 mg/L (0-300)
[2025-10-21 10:48] LABS: Alanine Aminotransferase 17 U/L (10-49); Albumin, Serum 4.5 gm/dL (3.4-4.8); Albumin/Globulin Ratio 1.7 (1.2-2.2); Alkaline Phosphatase 95 U/L (46-116); Anion Gap 8 (7-16); Aspartate Amino Transferase 18 U/L (0-34); BUN/Creatinine Ratio 18 Ratio (12-20); Bilirubin,Total 0.6 mg/dL (0.3-1.2); Blood Urea Nitrogen 16 mg/dL (9-23); Calcium 9.6 mg/dL (8.3-10.6); Calcium (Corrected) 9.6 mg/dL (8.5-10.1); Carbon Dioxide 30.8 mMol/L (20.0-31.0); Cardiac Risk Estimate 3.3 RATIO (3.7-5.6); Chloride 106 mMol/L (98-107); Cholesterol 165 mg/dL (132-200); Creatinine (Component) 0.9 mg/dL (0.6-1.3); Globulin 2.6 gm/dL (2.3-3.5); Glucose 119 mg/dL (74-106); HDL Cholesterol 50 mg/dL (40-60); LDL Cholesterol,Calculated 93 mg/dL (0-130); Osmolality,Calculated 290 (275-295); Potassium 4.2 mMol/L (3.4-5.1); Sodium 145 mMol/L (136-145); Thyroid Stimulating Hormone 3.56 uIU/mL (0.55-4.78); Total Protein 7.1 gm/dL (5.7-8.2); Triglycerides 112 mg/dL (30-150); eGFR > 60 See Note
[2025-10-21 11:26] LABS: Bilirubin,Urine Negative (Negative); Blood,Urine Negative (Negative); Clarity,Urine Clear (Clear/Hazy); Color,Urine Lt-Yellow (Lt Yel-Yel); Glucose, Urine Negative (Negative); Ketones,Urine Negative (Negative); Leukocyte Esterase,Urine Positive (Negative); Nitrite,Urine Negative (Negative); PH,Urine 6.0 (5.0-7.0); Protein,Urine Trace (Neg - Trace); RBC,Urine < 1 /hpf (0-3); Specific Gravity,Urine 1.017 (1.001-1.035); Squamous Epithelial Cell,Urine 2 /hpf (0-5); Urobilinogen,Urine Negative mg/dL (0.0-1.0); WBC,Urine 4 /hpf (0-5)
== END | disposition home or self-care (01) ==
LOC: COPL 09:16
PROVIDERS: PCP Internal Medicine; Referring Provider Internal Medicine; Visit Provider Internal Medicine Cardiovascular Disease
DX: E11.9 Type 2 diabetes mellitus without complications (principal); I10 Essential (primary) hypertension; E78.5 Hyperlipidemia, unspecified
CPT/HCPCS: 36415; 80053; 80061; 81001; 82043; 82570; 83036; 83970; 84443; 85025